=== PATIENT | female | born 1975 | race Caucasian/White ===

== ENCOUNTER 2016-06-20 14:37 | Emergency (ER) | payer MEDICAID ==
[~2016-06-20] VITALS: Ht 172.7 cm; Wt 70.5 kg
[~2016-06-20 14:37] MED LIST: ADDE30TA PO; SERO50TA PO
[2016-06-20 14:44] VITALS: BP 134/91; PULSE 123; RESP 16; TEMP 97.6; O2SAT 97
[2016-06-20 14:50] VITALS: BP 134/91; PULSE 108; RESP 16; O2SAT 97
[2016-06-20] MEDS ORDERED: QUET1TAB7 PO (14:56)
[2016-06-20] MEDS ORDERED: SODIUM CHLOR 0.9% 1000 ML INJ 1,000 ML IV ONE (15:00)
[2016-06-20] MEDS ORDERED: LORazepam 2 MG/ML VIAL IV PUSH ONE (15:00)
[2016-06-20] MEDS ORDERED: SODIUM CHLORIDE 0.9% FLUSH 5 ML FLUSH IVF PRN (15:00)
[2016-06-20 15:01] VITALS: BP 134/91; PULSE 132; RESP 16; O2SAT 100
[2016-06-20] MEDS ORDERED: ADDE30TA PO (15:03)
--- NOTE | 2016-06-20 15:08 | PD ---
HPI Chief Complaint: Cardiac Complaint Time Seen by Provider: 14:58 Travel History International Travel<30 days: No Contact w/Intl Traveler<30days: No Traveled to known affect area: No History of Present Illness HPI 40-year-old female presents to the ER today for sudden onset of palpitations, anxiety which started today. She denies any chest pains, shortness of breath, or any other symptoms. She does not know an obvious trigger. She denies any homicidal or suicidal ideation. She denies any substance use. She states that she had a few cups of coffee and soda today. Modifying Factors: None Associated Signs & Symptoms: Palpitations Risk Factors: None PFSH Past Medical History Hx Anticoagulant Therapy: No ADD: Yes ADHD: Yes Anxiety: Yes Heart Rhythm Problems: Yes (SVT) Cardiac Catheterization: No Cardiovascular Problems: Yes (TREADMILL STRESSTEST: NEGATIVE 2015) High Cholesterol: No Chemotherapy: No Chest Pain: Yes (WITH "ANXIETY ATTACKS") Congestive Heart Failure: No Cerebrovascular Accident: No Diabetes: No Diminished Hearing: No Respiratory: No Immunizations Current: Yes ?: Not Menopausal: Yes : 3 Para: 3 Miscarriage: 0 : 0 Past Surgical History Abdominal Surgery: Yes (2000,"part of large intestine removed at same time as hysterectomy", ) Cholecystectomy: Yes Coronary Artery Bypass Graft: No Hysterectomy: Yes Joint Replacement: Yes (BILATERAL ELBOW SURGERY) Other Surgery: Yes (gastric bypass) Social History Alcohol Use: No Tobacco Use: No Substance Use: No Allergies-Medications (Allergen,Severity, Reaction): Coded Allergies: Dilaudid (Unverified Allergy, Severe, Itching, 06/20/16) Morphine (Unverified Allergy, Severe, CLOSTROPHOBIA, 06/20/16) Codeine (Verified Allergy, Mild, 06/20/16) Darvocet-N 100 (Verified Allergy, Mild, 06/20/16) Percocet (Verified Allergy, Mild, 06/20/16) Latex (Verified Adverse Reaction, Severe, "blisters", 06/20/16) Reported Meds & Prescriptions Reported Meds & Active Scripts Active Reported Adderall (Amphetamine-Dextroamphetamine) 30 Mg Tab 30 Mg PO DAILY Avoid late evening doses. Space doses at least 4 to 6 hours if more than once/day dosing. Quetiapine (Quetiapine Fumarate) 25 Mg Tab 25 Mg PO BID Review of Systems Except as stated in HPI: all other systems reviewed are Neg Physical Exam Narrative GENERAL: Well-nourished, well-developed anxious appearing white female patient in mild distress. SKIN: Warm and dry. HEAD: Normocephalic. EYES: No scleral icterus. No injection or drainage. NECK: Supple, trachea midline. CARDIOVASCULAR: Fast and regular rhythm without murmurs, gallops, or rubs. RESPIRATORY: Breath sounds equal bilaterally. No accessory muscle use. GASTROINTESTINAL: Abdomen soft, non-tender, nondistended. MUSCULOSKELETAL: No cyanosis, or edema. BACK: Nontender without obvious deformity. No CVA tenderness. Data Data Last Documented VS Vital Signs Date Time Temp Pulse Resp B/P Pulse Ox O2 Delivery O2 Flow Rate FiO2 06/20/16 16:14 102 16 151/90 100 Room Air 06/20/16 14:44 97.6 Orders Electrocardiogram (06/20/16 14:58) Basic Metabolic Panel (Bmp) (06/20/16 14:58) Complete Blood Count With Diff (06/20/16 14:58) D-Dimer (06/20/16 14:58) Magnesium (Mg) (06/20/16 14:58) Chest, Single Ap (06/20/16 14:58) Ecg Monitoring (06/20/16 14:58) Bilateral Bp Monitoring (06/20/16 14:58) Iv Access Insert/Monitor (06/20/16 14:58) Oximetry (06/20/16 14:58) Oxygen Administration (06/20/16 14:58) Sodium Chloride 0.9% Flush (Ns Flush) (06/20/16 15:00) Ed Urine Pregnancytest Poc (06/20/16 14:58) Sodium Chlor 0.9% 1000 Ml Inj (Ns 1000 M (06/20/16 15:00) Lorazepam Inj (Ativan Inj) (06/20/16 15:00) Labs Laboratory Tests Test 06/20/16 14:56 White Blood Count 4.9 TH/MM3 Red Blood Count 4.93 MIL/MM3 Hemoglobin 14.1 GM/DL Hematocrit 41.1 % Mean Corpuscular Volume 83.3 FL Mean Corpuscular Hemoglobin 28.5 PG Mean Corpuscular Hemoglobin 34.2 % Concent Red Cell Distribution Width 13.1 % Platelet Count 194 TH/MM3 Mean Platelet Volume 9.1 FL Neutrophils (%) (Auto) 56.0 % Lymphocytes (%) (Auto) 32.0 % Monocytes (%) (Auto) 10.0 % Eosinophils (%) (Auto) 1.1 % Basophils (%) (Auto) 0.9 % Neutrophils # (Auto) 2.7 TH/MM3 Lymphocytes # (Auto) 1.6 TH/MM3 Monocytes # (Auto) 0.5 TH/MM3 Eosinophils # (Auto) 0.1 TH/MM3 Basophils # (Auto) 0.0 TH/MM3 CBC Comment DIFF FINAL Differential Comment D-Dimer Quantitative (PE/DVT) LESS THAN 0.19 MG/L FEU Sodium Level 142 MEQ/L Potassium Level 3.6 MEQ/L Chloride Level 108 MEQ/L Carbon Dioxide Level 27.4 MEQ/L Anion Gap 7 MEQ/L Blood Urea Nitrogen 9 MG/DL Creatinine 0.89 MG/DL Estimat Glomerular Filtration 71 ML/MIN Rate Random Glucose 96 MG/DL Calcium Level 9.1 MG/DL Magnesium Level 2.0 MG/DL [facility] Medical Decision Making Medical Screen Exam Complete: Yes Emergency Medical Condition: Yes Medical Record Reviewed: Yes Interpretation(s) EKG shows sinus tachycardia at a rate of 120 bpm. No signs of acute ST-T changes. Laboratory Tests Test 06/20/16 14:56 Monocytes (%) (Auto) 10.0 % (0.0-8.0) Chloride Level 108 MEQ/L (98-107) Estimat Glomerular Filtration 71 ML/MIN (>89) Rate Differential Diagnosis Palpitationsdysrhythmias versus metabolic issues versus dehydration versus anxiety attack Narrative Course D-dimer is negative. Patient has sinus tachycardia, no signs of delta waves or other dysrhythmias. Vital signs are otherwise unremarkable. Her d-dimer is negative. She was given Ativan in the ER with improvement in heart rate on reevaluation at 4:30 PM. At this point, my plan would be to release her with follow-up to primary care physician. Avoid caffeinated beverages. Return for any worsening in symptoms as needed. The plan has been discussed with her and family who are now bedside and they are agreeable. Diagnosis Primary Impression: Sinus tachycardia Disposition: 01 DISCHARGE HOME Condition: Stable Arie Ortega MD Jun 20, 2016 15:08
[2016-06-20 15:23] LABS: AUTOMATED NEUTROPHIL # 2.7 TH/MM3 (1.8-7.7); BASOPHIL % 0.9 % (0.0-2.0); EOSINOPHIL # 0.1 TH/MM3 (0-0.4); EOSINOPHIL % 1.1 % (0.0-4.0); HEMATOCRIT 41.1 % (35.0-46.0); HEMO FLAGS DIFF FINAL; LYMPHOCYTE # 1.6 TH/MM3 (1.0-4.8); MEAN CELL VOLUME 83.3 FL (80.0-100.0); MEAN CORPUSCULAR HEMOGLOBIN 28.5 PG (27.0-34.0); MEAN CORPUSCULAR HGB CONC 34.2 % (32.0-36.0); PLATELET COUNT 194 TH/MM3 (150-450); RED BLOOD COUNT 4.93 MIL/MM3 (4.00-5.30); RED CELL DISTRIBUTION WIDTH 13.1 % (11.6-17.2); WHITE BLOOD COUNT 4.9 TH/MM3 (4.0-11.0)
[2016-06-20 15:32] VITALS: BP 148/98; PULSE 122; RESP 16; O2SAT 100
[2016-06-20 16:01] LABS: BICARBONATE 27.4 MEQ/L (21.0-32.0); POTASSIUM 3.6 MEQ/L (3.5-5.1)
[2016-06-20 16:14] VITALS: BP 151/90; PULSE 102; RESP 16; O2SAT 100
--- NOTE | 2016-06-20 16:20 | RADRPT ---
EXAM DATE/TIME: 06/20/2016 16:00 [facility] COMPARISON: CHEST SINGLE AP, April 14, 2015, 11:08. INDICATIONS : Irregular heart rate, chest discomfort starting today MEDICAL HISTORY : None. SURGICAL HISTORY : None. ENCOUNTER: Initial ACUITY: 1 day PAIN SCORE: 0/10 LOCATION: Bilateral chest FINDINGS: A single view of the chest demonstrates the lungs to be symmetrically aerated without evidence of mas s, infiltrate or effusion. The cardiomediastinal contours are unremarkable. Osseous structures are intact. CONCLUSION: Normal examination. No significant change has occurred. Rj Delgado MD on June 20, 2016 at 16:18 Board Certified Radiologist. This report was verified electronically.
--- NOTE | 2016-06-21 12:49 | EKG ---
Date Performed: 06/20/2016 Time Performed: 14:49:50 PTAGE: 40 years EKG: SINUS TACHYCARDIA NONSPECIFIC ST & T-WAVE ABNORMALITY Compared to previous tracing non spec ific st changes ar enow present and the rate is faster ABNORMAL RHYTHM ECG PREVIOUS TRACING : 04/14/2015 13.59 DOCTOR: Kain Jang Interpretating Date/Time 06/21/2016 12:48:30
[2016-07-17] MEDS ORDERED: ADDE30TA PO ×3 (13:10→13:41)
[2016-07-17] MEDS ORDERED: QUET1TAB7 PO (13:41)
[2016-10-13] MEDS ORDERED: SERO25TA PO ×2 (12:29→12:33)
[2016-10-13] MEDS ORDERED: ADDE30TA PO ×2 (12:29→15:04)
[2016-11-05] MEDS ORDERED: ADDE30TA PO ×2 (08:48→14:24)
[2016-11-05] MEDS ORDERED: ZOLO100T PO ×2 (14:19→14:24)
== END 2016-06-20 16:47 | disposition home or self-care (01) ==
LOC: NEPC 14:37
DX: R00.0 Tachycardia, unspecified (principal); F41.9 Anxiety disorder, unspecified; R94.31 Abnormal electrocardiogram [ECG] [EKG]; Z86.59 Personal history of other mental and behavioral disorders; Z86.79 Personal history of other diseases of the circulatory system
CPT/HCPCS: 71010; 80048; 83735; 85025; 85379; 93005; 96361; 96374; 99285; J2060; J7030

== ENCOUNTER 2016-08-04 09:13 | Observation (INO) | payer MEDICAID ==
[2016-08-04] VITALS (7 sets, daily range): BP systolic 110–136; BP diastolic 63–90; PULSE 62–134; RESP 16–22; TEMP 97.7–98.3; O2SAT 96–99
[~2016-08-04] VITALS: Ht 175.3 cm; Wt 75.0 kg
[~2016-08-04 09:13] MED LIST changes: +QUET1TAB7 PO; -SERO50TA PO
[2016-08-04] MEDS ORDERED: NITR0.4S SL (09:31)
[2016-08-04] MEDS ORDERED: METO50TA PO (09:31)
[2016-08-04] MEDS ORDERED: QUET1TAB7 PO (09:32)
[2016-08-04] MEDS ORDERED: ASPI325T PO (09:32)
[2016-08-04] MEDS ORDERED: SODIUM CHLORIDE 0.9% FLUSH 5 ML FLUSH IVF PRN ×2 (09:45→14:15)
[2016-08-04] MEDS: METOPROLOL TARTRATE 5 MG/5 ML VIAL IVS SCH ×3 (09:50→09:55)
[2016-08-04 10:03] LABS: AUTOMATED NEUTROPHIL # 2.4 TH/MM3 (1.8-7.7); BASOPHIL % 0.7 % (0.0-2.0); EOSINOPHIL # 0.1 TH/MM3 (0-0.4); HEMO FLAGS DIFF FINAL; LYMPHOCYTE # 1.7 TH/MM3 (1.0-4.8); MEAN CELL VOLUME 83.8 FL (80.0-100.0); MEAN CORPUSCULAR HEMOGLOBIN 28.4 PG (27.0-34.0); NEUT % 50.3 % (16.0-70.0); PLATELET COUNT 184 TH/MM3 (150-450); RED BLOOD COUNT 4.42 MIL/MM3 (4.00-5.30); RED CELL DISTRIBUTION WIDTH 13.1 % (11.6-17.2); WHITE BLOOD COUNT 4.8 TH/MM3 (4.0-11.0)
[2016-08-04] MEDS: NITROGLYCERIN 0.4 MG SL 25 TABS/BTL SL SCH ×3 (10:05→10:10)
--- NOTE | 2016-08-04 10:09 | PD ---
HPI Chief Complaint: Chest Pain Time Seen by Provider: 09:35 Travel History International Travel<30 days: No Contact w/Intl Traveler<30days: No Traveled to known affect area: No History of Present Illness HPI Patient 40-year-old female presents emergency Department with chest pain and having the middle of her chest without radiation. She does endorse mild shortness of breath with these symptoms. Patient states is intermittently happen to her over the past few months. Patient states the pain started approximately 8:30 today she took 2 nitroglycerin prior to arrival which only had mild effect on her pain. Patient is followed by an outside wood tile installation helper and had a stress test in the middle of June which was positive for reversible defect. Patient according to the documentation from her wood tile installation helper she has brought with her was referred to credit collections analyst however nobody appears to take her insurance. Patient did take 324 aspirin this morning. She states she's also been taking her other medicines Adderall as well as metoprolol. PFSH Past Medical History Hx Anticoagulant Therapy: No ADD: Yes ADHD: Yes Anxiety: Yes Heart Rhythm Problems: Yes (SVT) Cardiac Catheterization: No Cardiovascular Problems: Yes High Cholesterol: No Chemotherapy: No Chest Pain: Yes (WITH "ANXIETY ATTACKS") Congestive Heart Failure: No Cerebrovascular Accident: No Diabetes: No Diminished Hearing: No Respiratory: No Immunizations Current: Yes ?: Not Menopausal: Yes : 3 Para: 3 Miscarriage: 0 : 0 Past Surgical History Abdominal Surgery: Yes (2000,"part of large intestine removed at same time as hysterectomy", ) Cholecystectomy: Yes Coronary Artery Bypass Graft: No Hysterectomy: Yes Joint Replacement: Yes (BILATERAL ELBOW SURGERY) Other Surgery: Yes (gastric bypass) Social History Alcohol Use: No Tobacco Use: No Substance Use: No Allergies-Medications (Allergen,Severity, Reaction): Coded Allergies: Dilaudid (Unverified Allergy, Severe, Itching, 07/17/16) Morphine (Unverified Allergy, Severe, CLOSTROPHOBIA, 07/17/16) Codeine (Verified Allergy, Mild, 07/17/16) Darvocet-N 100 (Verified Allergy, Mild, 07/17/16) Percocet (Verified Allergy, Mild, 07/17/16) Latex (Verified Adverse Reaction, Severe, "blisters", 07/17/16) Reported Meds & Prescriptions Reported Meds & Active Scripts Active Adderall (Amphetamine-Dextroamphetamine) 30 Mg Tab 30 Mg PO BID Avoid late evening doses. Space doses at least 4 to 6 hours if more than once/day dosing. Adderall (Amphetamine-Dextroamphetamine) 30 Mg Tab 30 Mg PO BID Avoid late evening doses. Space doses at least 4 to 6 hours if more than once/day dosing. Adderall (Amphetamine-Dextroamphetamine) 30 Mg Tab 30 Mg PO BID Avoid late evening doses. Space doses at least 4 to 6 hours if more than once/day dosing. Reported Quetiapine (Quetiapine Fumarate) 25 Mg Tab 25 Mg PO DAILY Aspirin 325 Mg Tab 325 Mg PO DAILY Nitrostat SL (Nitroglycerin) 0.4 Mg Subl 0.4 Mg SL DIRECTED PRN 1 tablet under the tongue as needed for chest pain. Repeat every 5 minutes for a total of 3 DOSES or call 911 if NO relief. Metoprolol Tartrate 50 Mg Tab 50 Mg PO BID Review of Systems Except as stated in HPI: all other systems reviewed are Neg Physical Exam Narrative GENERAL: Well-developed well-nourished no apparent distress SKIN: Warm and dry. HEAD: Atraumatic. Normocephalic. EYES: Pupils equal and round. No scleral icterus. No injection or drainage. ENT: No nasal bleeding or discharge. Mucous membranes pink and moist. NECK: Trachea midline. No JVD. CARDIOVASCULAR: Regular rate and rhythm. No murmur appreciated. 2+ bilateral equal pulses in all 4 extremity RESPIRATORY: No accessory muscle use. Clear to auscultation. Breath sounds equal bilaterally. GASTROINTESTINAL: Abdomen soft, non-tender, nondistended. Hepatic and splenic margins not palpable. MUSCULOSKELETAL: No obvious deformities. No clubbing. No cyanosis. No edema. NEUROLOGICAL: Awake and alert. No obvious cranial nerve deficits. Motor grossly within normal limits. Normal speech. PSYCHIATRIC: Appropriate mood and affect; insight and judgment normal. Data Data Last Documented VS Vital Signs Date Time Temp Pulse Resp B/P Pulse Ox O2 Delivery O2 Flow Rate FiO2 08/04/16 10:45 62 20 110/63 98 Nasal Cannula 2 08/04/16 09:21 98.3 Orders Electrocardiogram (08/04/16 ) Ckmb (Isoenzyme) Profile (08/04/16 09:43) Complete Blood Count With Diff (08/04/16 09:43) Comprehensive Metabolic Panel (08/04/16 09:43) Magnesium (Mg) (08/04/16 09:43) Prothrombin Time / Inr (Pt) (08/04/16 09:43) Act Partial Throm Time (Ptt) (08/04/16 09:43) Troponin I (08/04/16 09:43) Lipase (08/04/16 09:43) Chest, Single Ap (08/04/16 09:43) Ecg Monitoring (08/04/16 09:43) Bilateral Bp Monitoring (08/04/16 09:43) Iv Access Insert/Monitor (08/04/16 09:43) Oximetry (08/04/16 09:43) Oxygen Administration (08/04/16 09:43) Sodium Chloride 0.9% Flush (Ns Flush) (08/04/16 09:45) Metoprolol Tartrate Inj (Lopressor Inj) (08/04/16 09:45) Nitroglycerin Sl (Nitrostat Sl) (08/04/16 10:00) D-Dimer (08/04/16 09:58) Consult Cardiology (08/04/16 ) Admit Order (Ed Use Only) (08/04/16 ) Labs Laboratory Tests Test 08/04/16 09:46 White Blood Count 4.8 TH/MM3 Red Blood Count 4.42 MIL/MM3 Hemoglobin 12.6 GM/DL Hematocrit 37.0 % Mean Corpuscular Volume 83.8 FL Mean Corpuscular Hemoglobin 28.4 PG Mean Corpuscular Hemoglobin 34.0 % Concent Red Cell Distribution Width 13.1 % Platelet Count 184 TH/MM3 Mean Platelet Volume 8.7 FL Neutrophils (%) (Auto) 50.3 % Lymphocytes (%) (Auto) 36.0 % Monocytes (%) (Auto) 10.0 % Eosinophils (%) (Auto) 3.0 % Basophils (%) (Auto) 0.7 % Neutrophils # (Auto) 2.4 TH/MM3 Lymphocytes # (Auto) 1.7 TH/MM3 Monocytes # (Auto) 0.5 TH/MM3 Eosinophils # (Auto) 0.1 TH/MM3 Basophils # (Auto) 0.0 TH/MM3 CBC Comment DIFF FINAL Differential Comment Prothrombin Time 10.2 SEC Prothromb Time International 0.9 RATIO Ratio Activated Partial 25.6 SEC Thromboplast Time D-Dimer Quantitative (PE/DVT) 0.34 MG/L FEU Sodium Level 142 MEQ/L Potassium Level 3.8 MEQ/L Chloride Level 107 MEQ/L Carbon Dioxide Level 27.7 MEQ/L Anion Gap 7 MEQ/L Blood Urea Nitrogen 17 MG/DL Creatinine 0.88 MG/DL Estimat Glomerular Filtration 72 ML/MIN Rate Random Glucose 118 MG/DL Calcium Level 8.3 MG/DL Magnesium Level 1.9 MG/DL Total Bilirubin 0.4 MG/DL Aspartate Amino Transf 21 U/L (AST/SGOT) Alanine Aminotransferase 22 U/L (ALT/SGPT) Alkaline Phosphatase 127 U/L Total Creatine Kinase 54 U/L Troponin I LESS THAN 0.02 NG/ML Total Protein 6.5 GM/DL Albumin 3.2 GM/DL Lipase 286 U/L MDM Medical Decision Making Medical Screen Exam Complete: Yes Emergency Medical Condition: Yes Interpretation(s) EKG shows sinus rhythm with a normal axis and normal R-wave progression. Q waves in II, III, and F aVF could represent inferior infarct, no concerning ST T changes. Probable left atrial enlargement, borderline EKG. Differential Diagnosis ACS, [place], PE less likely, pneumonia, pleuritic chest pain, anxiety. Narrative Course Patient roomed in the emergency department, tachycardic out in triage was given a total of 5,000,000 g IV, nitroglycerin 1 sublingual. Had some improvement in her pain. D-dimer was negative, troponin negative, EKG is nonischemic. Patient was discussed with Dr. Riky Ugalde who agrees with admission for his consultation and consideration of cardiac catheterization after his consultation. This was discussed with the patient who is agreeable. She remains hemodynamically stable in the emergency department. Diagnosis Primary Impression: Chest pain Qualified Code: R07.9 - Chest pain, unspecified type Additional Impression: Abnormal stress test Admitting Information Admitting Physician Requests: Observation Condition: Stable Lucas Kang MD Aug 04, 2016 10:09
[2016-08-04 10:12] LABS: APTT (PATIENT) 25.6 SEC (24.3-30.1); INTERNATIONAL NORMALIZED RATIO 0.9 RATIO; PROTHROMBIN TIME - PATIENT 10.2 SEC (9.8-11.6)
[2016-08-04 10:25] LABS: ANION GAP 7 MEQ/L (5-15); AST (GOT) 21 U/L (15-37); BICARBONATE 27.7 MEQ/L (21.0-32.0); BLOOD UREA NITROGEN 17 MG/DL (7-18); CHLORIDE 107 MEQ/L (98-107); GLOMERULAR FILTRATION RATE 72 ML/MIN (>89); MAGNESIUM 1.9 MG/DL (1.5-2.5); POTASSIUM 3.8 MEQ/L (3.5-5.1); SODIUM (NA) 142 MEQ/L (136-145)
[2016-08-04 10:30] LABS: ALKALINE PHOSPHATASE 127 U/L (45-117); ALT (GPT) 22 U/L (10-53); TOTAL BILIRUBIN ADULT 0.4 MG/DL (0.2-1.0)
--- NOTE | 2016-08-04 10:32 | RADRPT ---
EXAM DATE/TIME: 08/04/2016 10:14 [facility] COMPARISON: CHEST SINGLE AP, June 20, 2016, 16:00. INDICATIONS : Patient has had chest pain since this morning. MEDICAL HISTORY : None. SURGICAL HISTORY : Hysterectomy. ENCOUNTER: Initial ACUITY: 1 day PAIN SCORE: 8/10 LOCATION: chest FINDINGS: A single view of the chest demonstrates the lungs to be symmetrically aerated without evidence of mas s, infiltrate or effusion. The cardiomediastinal contours are unremarkable. Osseous structures are intact. CONCLUSION: Normal examination. Zach Adrian MD on August 04, 2016 at 10:28 Board Certified Radiologist. This report was verified electronically.
[2016-08-04 10:36] LABS: CREATINE KINASE 54 U/L (26-192)
--- NOTE | 2016-08-04 11:07 | HHI.HP ---
[facility] Service Family Medicine Primary Care Physician Kaushal Sanderson Admission Diagnosis Diagnoses: International Travel<30 Days: No Contact w/Intl Traveler<30days: No Known Affected Area: No History of Present Illness 40-year-old female, with past medical history of gastric bypass, severe anxiety, panic disorder, and spontaneous ventricular tachycardia, presents with chest pain for the past 3 years, off and on. Recently, she got up this morning at 0815 and took 325 mg Aspirin. The pain was described as a shooting pain in her back, neck and into the chest, after getting into the shower. She started sweating and needed to sit in front of a fan. Took at nitroglycerin sublingual tablet at 0850, this "didn't help any". He further characterizes her pain/chest discomfort as: Onset: Sudden onset Location: Middle of chest, radiating across entire chest. Radiated into neck. Duration: Constant C: Tightness, pressure. 10/10 at that time. Currently at 8/10. [place] like "I was trying to suck through a straw." A: Any movement makes her pain worse. R: Nothing makes the pain better. Drinking [place] lessens her pain. Time: Symptoms: [place] nauseous at time of event, and since. He denies any acid reflux symptoms, and did not eat prior to the event. The chest pain is not related to exertion. She did not feel any palpitations. Nitroglycerine does not help with the chest pain. The chest discomfort, shortness of breath, diaphoresis, and worry were "different than her normal panic attacks". Denies asthma. Denies reflux symptoms. Pressure and chest discomfort started 3 years ago. Everyday heart racing, feeling short of breath, for past 3 years. Adderall only twice a month. (Zia Suero MD R2) Review of Systems Constitutional: COMPLAINS OF: Fatigue, DENIES: Fever Eyes: DENIES: Diplopia Cardiovascular: COMPLAINS OF: Chest pain, Palpitations, PND, Lower Extremity Edema, DENIES: Syncope Gastrointestinal: COMPLAINS OF: Nausea, DENIES: Bloody stools, Constipation, Diarrhea, Vomiting Musculoskeletal: COMPLAINS OF: Back pain, Neck pain, DENIES: Stiffness Neurologic: DENIES: Headache (Zia Suero MD R2) Past Family Social History Past Medical History Past Medical History ADD: Yes ADHD: Yes Anxiety: Yes Heart Rhythm Problems: Yes (SVT) Cardiac Catheterization: No Cardiovascular Problems: Yes - nuclear stress test Feb large, reversible anterior wall defect. High Cholesterol: No Chest Pain: Yes x 3 years Cerebrovascular Accident: No Diabetes: No Diminished Hearing: No Respiratory: No Past Surgical History Abdominal Surgery: Yes 2000 full hysterectomy", Cholecystectomy: Yes 1998 Coronary Artery Bypass Graft: No Hysterectomy: Yes Joint Replacement: Yes (BILATERAL ELBOW SURGERY) Other Surgery: Yes - gastric bypass 2013, lost 160 lbs in 1 year. Breast Augmentation November 2014, "tummy tuck" Social History Alcohol Use: No Tobacco Use: No Substance Use: No Lives in [facility]. Lives with . (Zia Suero MD R2) Allergies: Coded Allergies: Dilaudid (Unverified Allergy, Severe, Itching, 07/17/16) Morphine (Unverified Allergy, Severe, CLOSTROPHOBIA, 07/17/16) Codeine (Verified Allergy, Mild, 07/17/16) Darvocet-N 100 (Verified Allergy, Mild, 07/17/16) Percocet (Verified Allergy, Mild, 07/17/16) Latex (Verified Adverse Reaction, Severe, "blisters", 07/17/16) Physical Exam Vital Signs Vital Signs Date Time Temp Pulse Resp B/P Pulse Ox O2 Delivery O2 Flow Rate FiO2 08/04/16 10:45 62 20 110/63 98 Nasal Cannula 2 08/04/16 10:18 76 16 110/67 96 Nasal Cannula 2 08/04/16 10:09 70 20 120/73 97 Nasal Cannula 2 08/04/16 09:58 99 Nasal Cannula 2 08/04/16 09:56 67 20 117/77 99 Nasal Cannula 2 08/04/16 09:21 98.3 99 22 136/90 97 08/04/16 09:20 97.7 134 18 132/83 97 Physical Exam Vital Signs Date Time Temp Pulse Resp B/P Pulse Ox O2 Delivery O2 Flow Rate FiO2 08/04/16 13:08 98 Nasal Cannula 2.00 08/04/16 10:45 62 20 110/63 08/04/16 09:21 98.3 GENERAL: This is a well-nourished, well-developed patient, in no apparent distress. Slightly diaphoretic. SKIN: Multiple tattoos. HEAD: Atraumatic. Normocephalic. No temporal or scalp tenderness. EYES: Pupils equal round and reactive. Extraocular motions intact. No scleral icterus. No injection or drainage. ENT: Nose without bleeding, purulent drainage or septal hematoma. Upper dentures in place. Throat without erythema, moist mucous membranes. NECK: Trachea midline. No JVD or lymphadenopathy. CARDIOVASCULAR: Regular rate and rhythm without murmurs, gallops, or rubs. Tenderness to palpation over the left sternal border, and as well with movement of the left arm when adducting it past the midline. RESPIRATORY: Clear to auscultation. Breath sounds equal bilaterally. No wheezes , rales, or rhonchi. GASTROINTESTINAL: Abdomen soft, non-tender, nondistended. No hepato-splenomegaly , or palpable masses. No guarding. MUSCULOSKELETAL: Extremities without clubbing, cyanosis, or edema. No joint tenderness, effusion, or edema noted. No calf tenderness. NEUROLOGICAL: Awake and alert. Cranial nerves II through XII intact. Motor and sensory grossly within normal limits. Five out of 5 muscle strength in all muscle groups. Normal speech. Laboratory Laboratory Tests Test 08/04/16 09:46 White Blood Count 4.8 Red Blood Count 4.42 Hemoglobin 12.6 Hematocrit 37.0 Mean Corpuscular Volume 83.8 Mean Corpuscular Hemoglobin 28.4 Mean Corpuscular Hemoglobin 34.0 Concent Red Cell Distribution Width 13.1 Platelet Count 184 Mean Platelet Volume 8.7 Neutrophils (%) (Auto) 50.3 Lymphocytes (%) (Auto) 36.0 Monocytes (%) (Auto) 10.0 Eosinophils (%) (Auto) 3.0 Basophils (%) (Auto) 0.7 Neutrophils # (Auto) 2.4 Lymphocytes # (Auto) 1.7 Monocytes # (Auto) 0.5 Eosinophils # (Auto) 0.1 Basophils # (Auto) 0.0 CBC Comment DIFF FINAL Differential Comment Prothrombin Time 10.2 Prothromb Time International 0.9 Ratio Activated Partial 25.6 Thromboplast Time D-Dimer Quantitative (PE/DVT) 0.34 Sodium Level 142 Potassium Level 3.8 Chloride Level 107 Carbon Dioxide Level 27.7 Anion Gap 7 Blood Urea Nitrogen 17 Creatinine 0.88 Estimat Glomerular Filtration 72 Rate Random Glucose 118 Calcium Level 8.3 Magnesium Level 1.9 Total Bilirubin 0.4 Aspartate Amino Transf 21 (AST/SGOT) Alanine Aminotransferase 22 (ALT/SGPT) Alkaline Phosphatase 127 Total Creatine Kinase 54 Troponin I LESS THAN 0.02 Total Protein 6.5 Albumin 3.2 Lipase 286 (Zia Suero MD R2) Result Diagram: 08/04/16 0946 08/04/16 0946 Imaging EKG: Heart rate 88, sinus rhythm, no ST or T-wave changes. Adequate R-wave progression in anterior leads. (Zia Suero MD R2) Septic Shock Reassessment Heart: Regular rate and rhythm Lungs: Clear Skin: Warm (Zia Suero MD R2) Assessment and Plan Assessment and Plan 40-year-old female, presenting with chest pain x 1 hour in duration that was sudden onset, that radiates to her back and up into her neck. Previous nuclear stress test revealed an anterior wall perfusion defect, that was reversible. She did not have an elevation in her troponin or in her baseline EKG. She was taken to the Neurosurgeon per the medical billing service, there were no acute blockages. Code Status Full Code. (Zia Suero MD R2) Problem List: (1) Sinus tachycardia Status: Acute Plan: Tachycardia on admission to 115 bpm, sinus in origin. Likely related to underlying anxiety disorder. (2) Atypical chest pain Status: Acute Plan: Chest pain not classic for angina. Not related to exertion, not relieved with nitroglycerin, and reproducible on exam. Differential includes musculoskeletal, costochondritis, as well as panic disorder. Troponins were less than 0.02. EKG showed sinus rhythm with no ST change, T- wave flattening or inversion, or Q waves. Cardiac catheter was performed, please see cardiology's note. (3) Anxiety Status: Acute Plan: Command following up with primary care physician. Would consider adding BuSpar, versus clonazepam twice a day for underlying anxiety. (4) Abnormal stress test Status: Acute Plan: Previous abnormal nuclear stress test with Dr. Chapin. Which revealed a "large anterior reversible defect." Her echo showed an EF of 45% and her SPECT scan revealed an EF of 40%. There was trace mitral regurgitation and trace tricuspid regurgitation. (5) Depressive disorder Status: Acute Plan: Recommend follow-up as an outpatient. Discussed with Dr. Thomas and Dr. Ugalde. D/c home today 08/05/2016. (Zia Suero MD R2) Zia Suero MD R2 Aug 04, 2016 11:07 Abbi Thomas MD Aug 04, 2016 21:53
[2016-08-04] MEDS ORDERED: LORazepam 2 MG/ML VIAL IVS PRN (11:45)
[2016-08-04] MEDS ORDERED: NITROGLYCERIN 2% OINT 1 GM PACKET TOPICAL PRN (11:45)
[2016-08-04] MEDS ORDERED: ACETAMINOPHEN 500 MG CPLT PO PRN (12:00)
[2016-08-04] MEDS ORDERED: ONDANSETRON HCL 4 MG/2 ML VIAL IV PRN (12:00)
[2016-08-04] MEDS ORDERED: TEMAZEPAM 15 MG CAP PO PRN (12:00)
[2016-08-04] MEDS ORDERED: ALPRAZolam 0.25 MG TAB PO PRN (12:00)
[2016-08-04] MEDS ORDERED: PANTOPRAZOLE SOD 40 MG DELAYED RELEASE TAB PO SCH (13:00)
[2016-08-04] MEDS ORDERED: ENOXAPARIN SODIUM 40 MG/0.4 ML SYRINGE SQ SCH (13:00)
[2016-08-04] MEDS ORDERED: HEPARIN-NS/PF INJ 500 ML ONE (13:15)
[2016-08-04] MEDS ORDERED: MIDAZOLAM HCL 2 MG/2 ML VIAL ONE (13:16)
[2016-08-04] MEDS ORDERED: VERAPAMIL HCL 5 MG/2 ML VIAL ONE (13:16)
[2016-08-04] MEDS ORDERED: NITROGLYCERIN INJ 5 ML ONE (13:16)
[2016-08-04] MEDS ORDERED: HEPARIN SODIUM - IV 10,000 UNITS/10 ML VIAL ONE (13:16)
[2016-08-04] MEDS ORDERED: IOHEXOL 350 MG/ML 100 ML BTL (for Cath Lab) OTHER ONE (14:00)
[2016-08-04] MEDS ORDERED: MISC INFORMATION XX ONE (14:15)
--- NOTE | 2016-08-04 14:16 | MB ---
cc: ELLIOTT QUARLES,ROSITA GUTIÉRREZ DATE OF CONSULTATION: 08/04/[address] Rosita Sanderson. PRIMARY COMPENSATION SUPERVISOR Dr. Karl Griffiths. REASON FOR CONSULTATION Chest pain with abnormal stress test. HISTORY OF PRESENT ILLNESS Musa Martinez is a pleasant 40-year-old female who presents to [facility] Emergency Room on August 04, 2016 with a complaint of chest pain. She had previously seen Dr. Griffiths in the office and had a stress test in June showing a large anterior reversible defect with some suspicion of artifact. Ejection fraction was noted to be 40% on the stress test. In speaking to her, she states that she woke up this morning and had chest pain. Her chest pain starts in the middle of her back and then comes through the front of her chest which is sharp in nature. It does not radiate anywhere. It lasted all morning until now. She attempted to take two nitroglycerin which did not relieve it. She states that a lot of times she gets the pain when she has palpitations and appears to be in sinus tachycardia. Currently she is resting comfortably without pain. She does admit to panic attacks but feels that these episodes are different then her panic attacks. Chest pain started around [id number] years ago. PAST MEDICAL HISTORY 1. Anxiety. 2. History of SVT of unknown rhythm. 3. ADHD. PAST SURGICAL HISTORY 1. Hysterectomy (2000). 2. Cholecystectomy (1998). 3. Bilateral elbow surgery. 4. Gastric bypass with a Viola-en-Y (2013). 5. Breast augmentation (November 2014). ALLERGIES CODEINE. MEDICATIONS 1. Adderall 30 mg b.i.d. 2. Seroquel 25 mg daily. 3. Metoprolol tartrate 50 mg b.i.d. 4. Nitro sublingual as needed. 5. Aspirin 325 mg daily. SOCIAL HISTORY Denies tobacco, alcohol or drug abuse. FAMILY HISTORY Denies premature coronary artery disease or sudden cardiac within the family. REVIEW OF SYSTEMS 14-systems were reviewed in the history and physical and above pertinent positives and negatives above, otherwise negative. PHYSICAL EXAMINATION VITAL SIGNS: Temperature 98.3, heart rate 62, blood pressure 110/63, respirations 20, pulse ox 98% on 2 liters. GENERAL: The patient appears well, in no acute distress, alert, awake and oriented x3. HEENT: Extraocular muscles intact. Mucous membranes moist. NECK: Supple. No JVD at 45 degrees. No carotid bruits heard bilaterally. Carotid upstroke is brisk in nature. HEART: Heart is regular rate and rhythm. Positive first and second heart sounds with no murmurs, gallops or rubs. PMI is nondisplaced. LUNGS: Clear to auscultation bilaterally. No wheezes, rales or rhonchi. ABDOMEN: Soft, nontender, nondistended. No organomegaly noted. EXTREMITIES: Show no clubbing, cyanosis or edema. Femoral and distal pulses intact bilaterally. NEUROLOGIC: No focal deficits. SKIN: Warm, dry and intact. OSTEOPATHIC: No kyphoscoliosis, lordosis or paraspinal tender points. LABORATORY FINDINGS Hemoglobin 12.6, hematocrit 37.0, platelets 184. Potassium 3.8, BUN 17, creatinine 0.88, troponin 0.02. Electrocardiogram (August 04, 2016 at 0925) sinus rhythm, no acute ST-T wave changes. Pharmacologic nuclear stress test (July 22, 2016) large anterior reversible defect, ejection fraction 40%. IMPRESSION 1. Atypical chest pain for coronary insufficiency. 2. Pharmacologic nuclear stress test (July 22, 2016) showing a large anterior reversible defect. 3. SVT most likely a sinus tachycardia. 4. ADHD. 5. History of gastric bypass with Viola-en-Y. RECOMMENDATIONS 1. Because of Musa's chest pain with her significant abnormal stress test, we will plan on going to the cardiac catheterization lab. 2. She understands risks, benefits and alternatives and consents as such. 3. If cardiac catheterization is negative, she may need further workup with her sinus tachycardia which may be causing the pain versus other GI cause. 4. She does appear to have anxiety which may propagate further chest pain. 5. Lastly, she feels that she has extensive sinus tachycardia and this may be propagated by her Adderall. Thank you for allowing me to see Musa Martinez. If there are any questions, please do not hesitate to call. Elliott Quarles DO VGP/TLL /11:28 AM /12:53 PM
--- NOTE | 2016-08-04 15:25 | HHI.DCPOC ---
Discharge Care Plan Goals to Promote Your Health * To prevent worsening of your condition and complications * To maintain your health at the optimal level Directions to Meet Your Goals Take your medications as prescribed Follow your dietary instruction Follow activity as directed Keep your appointments as scheduled Take your immunizations and boosters as scheduled If your symptoms worsen call your PCP, if no PCP go to Urgent Care Center or Emergency Room Smoking is Dangerous to Your Health. Avoid second hand smoke Call the 24-hour hour crisis hotline for domestic abuse at Zia Suero MD R2 Aug 04, 2016 15:25 Abbi Thomas MD Aug 04, 2016 21:50
--- NOTE | 2016-08-04 15:44 | EKG ---
Date Performed: 08/04/2016 Time Performed: 09:25:20 PTAGE: 40 years EKG: Sinus rhythm POSSIBLE LEFT ATRIAL ENLARGEMENT BORDERLINE ECG Compared to prior tracing the sinus tachycardia and minimal nonspecific ST segment changes have resolved. PREVIOUS TRACING : 06/20/2016 14.49 DOCTOR: Gracie Jeffries Interpretating Date/Time 08/04/2016 15:42:44
[2016-08-04 16:24] LABS: HDL CHOLESTEROL 97.3 MG/DL (40.0-60.0)
--- NOTE | 2016-08-04 19:12 | HHI.FPPN ---
Subjective Subjective Patient seen and examined. Case reviewed and discussed Please refer to resident H&P for further details regarding HPI, ROS, PMH, SurgHc , FH and SocHx In summary, patient is a 40yoF presenting with chest pain. This was not relieved with NG She reportedly follows with Dr. Griffiths and reports a reversible defect on recent stress test. Therefore, cardiology was consulted and took patient to cardiac cath. She is seen with her family at the bedside in the DOCU. She denies any chest pain. [facility] Objective Objective Laboratory Tests - Abnormals Test 08/04/16 09:46 Monocytes (%) (Auto) 10.0 % Estimat Glomerular Filtration 72 ML/MIN Rate Random Glucose 118 MG/DL Calcium Level 8.3 MG/DL Alkaline Phosphatase 127 U/L Troponin I LESS THAN 0.02 NG/ML Albumin 3.2 GM/DL HDL Cholesterol 97.3 MG/DL Vital Signs 08/04/16 08/04/16 08/04/16 08/04/16 09:20 09:21 09:56 09:58 Temp 97.7 98.3 Pulse 134 99 67 Resp 18 22 20 B/P 132/83 136/90 117/77 Pulse Ox 97 97 99 99 O2 Delivery Nasal Cannula Nasal Cannula O2 Flow Rate 2 2 08/04/16 08/04/16 08/04/16 08/04/16 10:09 10:18 10:45 13:08 Pulse 70 76 62 Resp 20 16 20 B/P 120/73 110/67 110/63 Pulse Ox 97 96 98 98 O2 Delivery Nasal Cannula Nasal Cannula Nasal Cannula Nasal Cannula O2 Flow Rate 2 2 2 2.00 Physical exam GENERAL: wdwn female resting in bed, NAD SKIN: Warm and dry. No rashes HEAD: Normocephalic AT. EYES: No scleral icterus. No injection or drainage. ENT: OP clear. MMM. NC in place NECK: Supple, trachea midline. No JVD or lymphadenopathy. CARDIOVASCULAR: Regular rate and rhythm without audible murmurs, gallops, or rubs. RESPIRATORY: Breath sounds equal and clear bilaterally. No accessory muscle use. GASTROINTESTINAL: Abdomen soft, non-tender, nondistended. Normal active BS MUSCULOSKELETAL: No cyanosis, or edema. No calf tenderness. R wrist with compression s/p cardiac cath, no bleeding, hematoma. BACK: Nontender without obvious deformity. No CVA tenderness. NEURO: Awake and alert. Normal speech. CN grossly intact. Assessment Assessment 40yoF admitted with: Chest pain, r/o CAD Tachycardia Anxiety Depression PLAN PLAN Cardiology consulted for cardiac cath Trop, ekg Stop adderall-- patient counseled given tachycardia Discussed D-Dimer neg and if cardiac cath neg, likely anxiety related chest pain Telemetry Recommend outpatient follow-up for management of anxiety/depression Patient seen and examined. Case reviewed and discussed Agree with plan of care as discussed with me and documented in the resident note. Discussed with patient and family at the bedside, all questions answered. Abbi Thomas MD Aug 04, 2016 19:12
[2016-08-04] MEDS ORDERED: SODIUM CHLORIDE 0.9% FLUSH 5 ML FLUSH IVF SCH (21:00)
[2016-08-04] MEDS ORDERED: METOPROLOL TARTRATE 50 MG TAB PO SCH (21:00)
--- NOTE | 2016-08-04 21:56 | MA ---
cc: ELLIOTT QUARLES DONALD J. DATE 08/04/2016 PRIMARY BUSINESS ANALYST CONSULTANT [address]. Karl Griffiths. PROCEDURE Left heart catheterization, LV gram, coronary angiogram, moderate sedation 15 minutes. PREPROCEDURE DIAGNOSIS Chest pain, abnormal stress test. POSTPROCEDURE DIAGNOSIS Minimal coronary artery disease by cardiac catheterization. MEDICATIONS 1. Versed 1 mg. 2. Fentanyl 25 mcg. 3. Heparin 3000 units. CONTRAST 60 mL. FLUOROSCOPY 2.6 minutes. SEDATION Moderate sedation for 15 minutes. ESTIMATED BLOOD LOSS 10 mL. PROCEDURAL SUMMARY Musa Martinez is a pleasant 40-year-old female who was seen by Dr. Crawford in June 2016 and underwent pharmacologic nuclear stress testing which showed a moderate size anterior wall perfusion defect. She started having chest pain and so she came in to the emergency room. Due to her chest pain as well as known perfusion defect on stress testing which was felt to be an intermediate risk stress test, it was felt that she should undergo cardiac catheterization. Risks, benefits and alternatives were explained to her and she consented as such. She was brought to the cardiac catheterization lab and prepped in the usual sterile fashion. Right radial artery was accessed using a modified Seldinger technique and placement of a 5/6 slender sheath. A JR-4 was then advanced over a J-wire to the ascending aortic root and then across the aortic valve. Left ventricular end-diastolic pressure was measured at 14, LV gram shows an ejection fraction of 55%. JR-4 was then pulled back across the aortic valve showing no significant gradient of aortic stenosis. JR-4 was then used for a selective angiography of the right coronary artery which has somewhat of an anterior takeoff and is dominant in nature. There is a normal-appearing vessel with no significant disease. JR-4 was then exchanged for a JL-3.5 and this was used for selective angiography of the left coronary system. Left main is a normal-appearing vessel with no significant disease. It trifurcates into an LAD ramus and left circumflex. LAD has mild luminal irregularities in the mid to distal part. It gives off one major diagonal which has no significant disease. Ramus is a moderate size vessel with no significant disease. Left circumflex in the proximal portion is tortuous and may have a 10-20% lesion. Otherwise no significant disease throughout. JL-4 was then removed over a J-wire. A TR band was placed over the radial sheath to create hemostasis. The patient left the cardiac catheterization lab cardiovascularly stable. IMPRESSION 1. Noncoronary chest pain. 2. Possible chest pain secondary to anxiety. 3. History of SVT and sinus tachycardia. RECOMMENDATIONS 1. Musa Martinez presented originally with an abnormal stress test and chest pain. Her abnormal stress test appears to be a false positive. 2. Musa has no significant coronary artery disease to be causing her chest pain. 3. From a cardiovascular standpoint she is stable for discharge today. 4. She will follow up with Dr. Karl Griffiths for further workup of her chest pain. This may be due to anxiety versus a gastrointestinal cause. Thank you for allowing me to see Musa Martinez. If there are any questions please do not hesitate to call. Elliott Quarles DO VGP/KK /5:11 PM /8:42 PM
[2016-08-05] MEDS ORDERED: ASPIRIN 325 MG TAB PO SCH (09:00)
[2016-10-13] MEDS ORDERED: ADDE30TA PO ×2 (12:29→15:04)
[2016-10-13] MEDS ORDERED: SERO25TA PO ×2 (12:29→12:33)
[2016-11-05] MEDS ORDERED: ADDE30TA PO ×2 (08:48→14:24)
[2016-11-05] MEDS ORDERED: ZOLO100T PO ×2 (14:19→14:24)
== END 2016-08-04 16:30 | disposition home or self-care (01) ==
LOC: NEPC 09:13 → NEDA 11:08
PROVIDERS: ADMIT Family Medicine; ATTEND Family Medicine
DX: I25.10 Atherosclerotic heart disease of native coronary artery without angina pectoris (principal); I47.1 Supraventricular tachycardia; F32.9 Major depressive disorder, single episode, unspecified; F41.0 Panic disorder [episodic paroxysmal anxiety]; F90.9 Attention-deficit hyperactivity disorder, unspecified type; Z96.622 Presence of left artificial elbow joint; Z88.5 Allergy status to narcotic agent; Z91.040 Latex allergy status; Z98.84 Bariatric surgery status; Z79.82 Long term (current) use of aspirin; Z88.8 Allergy status to other drugs, medicaments and biological substances; Z96.621 Presence of right artificial elbow joint
CPT/HCPCS: 71010; 80053; 80061; 82550; 83690; 83735; 83880; 84443; 84484; 85025; 85379; 85610; 85730; 93005; 93458; 96374; 99285; C1769; C1893; G0378; J1644; J2250; J3010; Q9967

== ENCOUNTER 2016-09-08 10:19 | Emergency (ER) | payer MEDICAID ==
[~2016-09-08] VITALS: Ht 172.7 cm; Wt 82.0 kg
[~2016-09-08 10:19] MED LIST changes: -ADDE30TA PO; +ASPI325T PO; +METO50TA PO; +NITR0.4S SL
[2016-09-08 10:29] VITALS: BP 130/91; PULSE 113; RESP 20; TEMP 98.2; O2SAT 98
[2016-09-08] MEDS ORDERED: ZITHTAB PO (11:00)
--- NOTE | 2016-09-08 11:28 | PD ---
HPI Chief Complaint: Cold / Flu Symptoms Time Seen by Provider: 10:49 Travel History International Travel<30 days: No Contact w/Intl Traveler<30days: No Traveled to known affect area: No History of Present Illness HPI The patient was seen and examined in the presence of the nurse. She complains of cough and congestion and runny nose. She is coughing up phlegm that has some blood mixed in with it. Does not sound like john hemoptysis. No presyncopal symptoms or chest pain or shortness of breath. Some severity is mild to moderate. PFSH Past Medical History Hx Anticoagulant Therapy: No ADD: Yes ADHD: Yes Anxiety: Yes Heart Rhythm Problems: Yes (SVT) Cardiac Catheterization: No Cardiovascular Problems: Yes High Cholesterol: No Chemotherapy: No Chest Pain: Yes (WITH "ANXIETY ATTACKS") Congestive Heart Failure: No Cerebrovascular Accident: No Diabetes: No Diminished Hearing: No Respiratory: No Immunizations Current: Yes Influenza Vaccination: No ?: Not Menopausal: Yes : 3 Para: 3 Miscarriage: 0 : 0 Past Surgical History Abdominal Surgery: Yes (2000,"part of large intestine removed at same time as hysterectomy", ) Cholecystectomy: Yes Coronary Artery Bypass Graft: No Hysterectomy: Yes Joint Replacement: Yes (BILATERAL ELBOW SURGERY) Other Surgery: Yes (gastric bypass) Family History Family Myocardial Infarction: No Social History Alcohol Use: Yes (OCCAS) Tobacco Use: No Substance Use: No Allergies-Medications (Allergen,Severity, Reaction): Coded Allergies: Dilaudid (Unverified Allergy, Severe, Itching, 07/17/16) Morphine (Unverified Allergy, Severe, CLOSTROPHOBIA, 07/17/16) Codeine (Verified Allergy, Mild, 07/17/16) Darvocet-N 100 (Verified Allergy, Mild, 07/17/16) Percocet (Verified Allergy, Mild, 07/17/16) Latex (Verified Adverse Reaction, Severe, "blisters", 07/17/16) Reported Meds & Prescriptions Reported Meds & Active Scripts Active Zithromax Z-Krishan (Azithromycin) 250 Mg Dspk 250 Mg PO DIRECTED 500 MG (2 tabs) day 1, then 1 tab days 2-5. Reported Aspirin 325 Mg Tab 325 Mg PO DAILY Nitrostat SL (Nitroglycerin) 0.4 Mg Subl 0.4 Mg SL DIRECTED PRN 1 tablet under the tongue as needed for chest pain. Repeat every 5 minutes for a total of 3 DOSES or call 911 if NO relief. Metoprolol Tartrate 50 Mg Tab 50 Mg PO BID Review of Systems HENT: No: Headaches Cardiovascular: No: Chest Pain or Discomfort Respiratory: Positive: Cough Gastrointestinal: No: Vomiting Physical Exam Narrative GENERAL: Well-nourished, well-developed patient in no apparent distress. SKIN: Focused skin assessment reveals no rash and nodules. Skin is Warm and dry. HEAD: Atraumatic. Normocephalic. EYES: Pupils equal and round. No scleral icterus. No injection or drainage. ENT: No nasal bleeding or discharge. Mucous membranes pink and moist. NECK: Trachea midline. No JVD. No meningeal signs CARDIOVASCULAR: Regular rate and rhythm. No murmur appreciated. RESPIRATORY: No accessory muscle use. Clear to auscultation. Breath sounds equal bilaterally. GASTROINTESTINAL: Abdomen soft, non-tender, nondistended. Hepatic and splenic margins not palpable. MUSCULOSKELETAL: No obvious deformities. No clubbing. No cyanosis. No edema. NEUROLOGICAL: Awake and alert. No obvious cranial nerve deficits. Motor grossly within normal limits. Normal speech. PSYCHIATRIC: Appropriate mood and affect; insight and judgment normal. Data Data Last Documented VS Vital Signs Date Time Temp Pulse Resp B/P Pulse Ox O2 Delivery O2 Flow Rate FiO2 09/08/16 10:32 98 Room Air 09/08/16 10:29 98.2 113 20 130/91 MDM Medical Decision Making Medical Screen Exam Complete: Yes Emergency Medical Condition: Yes Medical Record Reviewed: Yes Differential Diagnosis Bronchitis, pneumonia, lung cancer Narrative Course I have reviewed the patient's electronic medical record. Patient was here one month ago with chest pain Patient's exam and presentation are fairly benign at this point I don't think extensive investigation is needed emergently Going to start her on Zithromax course She should discuss with her primary physician Dr. Sanderson and she agrees to do so. She will review with him and follow-up to see if he is going to suggest further pulmonary studies based on her coughing up bloody phlegm Diagnosis Primary Impression: Bronchitis Additional Instructions: The patient was advised to follow up with their physician and return if they worsen. Med/Other Pt SpecificInfo: Prescription(s) given Scripts Azithromycin (Zithromax Z-Krishan)250 Mg [id number] Mg PO DIRECTED #1 DSPK Ref 0 500 MG (2 tabs) day 1, then 1 tab days 2-5. Prov:Mik Ng MD 09/08/16 Disposition: 01 DISCHARGE HOME Condition: Stable Mik Ng MD Sep 08, 2016 11:11
[2016-10-13] MEDS ORDERED: ADDE30TA PO ×2 (12:29→15:04)
[2016-10-13] MEDS ORDERED: SERO25TA PO ×2 (12:29→12:33)
[2016-11-05] MEDS ORDERED: ADDE30TA PO ×2 (08:48→14:24)
[2016-11-05] MEDS ORDERED: ZOLO100T PO ×2 (14:19→14:24)
== END 2016-09-08 11:30 | disposition home or self-care (01) ==
LOC: PHED 10:19
DX: J40 Bronchitis, not specified as acute or chronic (principal)
CPT/HCPCS: 99283

== ENCOUNTER 2017-04-28 14:43 | Emergency (ER) | payer MEDICAID ==
[~2017-04-28] VITALS: Ht 172.7 cm; Wt 81.8 kg
[~2017-04-28 14:43] MED LIST changes: +ADDE30TA PO; +ASPI-183 PO; -ASPI325T PO; -QUET1TAB7 PO
[2017-04-28 14:44] VITALS: BP 154/90; PULSE 146; RESP 20; TEMP 98.3; O2SAT 99
[2017-04-28 15:34] LABS: AUTOMATED NEUTROPHIL # 2.4 TH/MM3 (1.8-7.7); BASOPHIL % 0.7 % (0.0-2.0); EOSINOPHIL % 0.5 % (0.0-4.0); HEMATOCRIT 44.3 % (35.0-46.0); HEMO FLAGS DIFF FINAL; LYMPHOCYTE # 1.7 TH/MM3 (1.0-4.8); MEAN CELL VOLUME 85.3 FL (80.0-100.0); MEAN CORPUSCULAR HEMOGLOBIN 28.8 PG (27.0-34.0); MEAN CORPUSCULAR HGB CONC 33.8 % (32.0-36.0); MONO % 8.8 % (0.0-8.0); PLATELET COUNT 187 TH/MM3 (150-450); RED BLOOD COUNT 5.19 MIL/MM3 (4.00-5.30); RED CELL DISTRIBUTION WIDTH 15.2 % (11.6-17.2); WHITE BLOOD COUNT 4.5 TH/MM3 (4.0-11.0)
[2017-04-28 15:50] LABS: BACTERIA, URINE RARE /hpf; BLOOD, URINE SMALL (NEG); COMMENT (UR) CULT NOT INDICATED; CULTURE IF INDICATED CULT NOT INDICATED; GLUCOSE,URINE NEG (NEG); KETONE, URINE NEG (NEG); MUCUS URINE FEW /lpf (OCC); NITRITE,URINE NEG (NEG); SQUAMOUS EPITHELIAL CELL URINE 11 /hpf (0-5); URINE COLOR YELLOW (YELLW/STRAW)
[2017-04-28 15:53] LABS: BICARBONATE 25.2 MEQ/L (21.0-32.0); MAGNESIUM 1.7 MG/DL (1.5-2.5); POTASSIUM 3.6 MEQ/L (3.5-5.1)
--- NOTE | 2017-04-28 16:23 | PD ---
HPI Chief Complaint: General Weakness Time Seen by Provider: 16:17 Travel History International Travel<30 days: No Contact w/Intl Traveler<30days: No Traveled to known affect area: No History of Present Illness HPI 41-year-old female presents the emergency department with reported sudden onset generalized weakness while attempting to pick her son up from school earlier this afternoon. Patient states she felt overall weakness but without significant pain, chills, fever, or other constitutional symptoms. Patient then went home and had her nephew drive her to mixing picker tender her son and then come here. She's developed a low-grade dull headache in the left parietal region which she states is less than a 2/10. She describes visual is in the left visual field as either showing or dots or wavy lines itch, and go since this started. She has mild nausea but no vomiting. She has no history of previous migraine. Patient is a history of total hysterectomy. Patient has multiple allergies including acetaminophen, codeine, hydromorphone, latex, morphine, oxycodone, and propoxyphene. Patient denies drug use. Patient denies recent increased stress PFSH Past Medical History Hx Anticoagulant Therapy: No ADD: Yes ADHD: Yes Anxiety: Yes Heart Rhythm Problems: Yes (SVT) Cardiac Catheterization: No Cardiovascular Problems: Yes High Cholesterol: No Chemotherapy: No Chest Pain: Yes (WITH "ANXIETY ATTACKS") Congestive Heart Failure: No Cerebrovascular Accident: No Diabetes: No Diminished Hearing: No Respiratory: No Immunizations Current: Yes LMP: 2000 Menopausal: Yes : 3 Para: 3 Miscarriage: 0 : 0 Past Surgical History Abdominal Surgery: Yes (2000,"part of large intestine removed at same time as hysterectomy", ) Cholecystectomy: Yes Coronary Artery Bypass Graft: No Hysterectomy: Yes Joint Replacement: Yes (BILATERAL ELBOW SURGERY) Other Surgery: Yes (gastric bypass) Social History Alcohol Use: Yes (OCCAS) Tobacco Use: No Substance Use: No Allergies-Medications (Allergen,Severity, Reaction): Coded Allergies: hydromorphone (Unverified Allergy, Severe, Itching, 04/28/17) morphine (Unverified Allergy, Severe, CLOSTROPHOBIA, 04/28/17) acetaminophen (Unverified Allergy, Mild, 04/28/17) codeine (Unverified Allergy, Mild, 04/28/17) oxycodone (Unverified Allergy, Mild, 04/28/17) propoxyphene (Unverified Allergy, Mild, 04/28/17) latex (Unverified Adverse Reaction, Severe, "blisters", 04/28/17) Reported Meds & Prescriptions Reported Meds & Active Scripts Active Adderall (Amphetamine-Dextroamphetamine) 30 Mg Tab 30 Mg PO BID Avoid late evening doses. Space doses at least 4 to 6 hours if more than once/day dosing. Adderall (Amphetamine-Dextroamphetamine) 30 Mg Tab 30 Mg PO BID Avoid late evening doses. Space doses at least 4 to 6 hours if more than once/day dosing. Adderall (Amphetamine-Dextroamphetamine) 30 Mg Tab 30 Mg PO BID Avoid late evening doses. Space doses at least 4 to 6 hours if more than once/day dosing. Reported Aspirin 325 Mg Tab 325 Mg PO DAILY Nitrostat SL (Nitroglycerin) 0.4 Mg Subl 0.4 Mg SL DIRECTED PRN 1 tablet under the tongue as needed for chest pain. Repeat every 5 minutes for a total of 3 DOSES or call 911 if NO relief. Metoprolol Tartrate 50 Mg Tab 50 Mg PO BID Review of Systems Except as stated in HPI: all other systems reviewed are Neg General / Constitutional: No: Fever Eyes: Positive: Other, No: Visual changes HENT: Positive: Headaches (see history of present illness Ray left-sided), No: Vertigo, Lightheadedness, Sore Throat, Rhinitis, Rhinorrhea, Congestion, Nosebleed, Neck Stiffness, Neck Pain, Dental Difficulties, Earache Cardiovascular: No: Chest Pain or Discomfort Respiratory: No: Shortness of Breath Gastrointestinal: Positive: Nausea, No: Vomiting, Diarrhea, Abdominal Pain Genitourinary: No: Dysuria Musculoskeletal: No: Pain Skin: No Rash Neurologic: No: Weakness Psychiatric: No: Depression Endocrine: No: Polydipsia Hematologic/Lymphatic: No: Easy Bruising Physical Exam Narrative GENERAL: Patient appears somewhat anxious SKIN: Warm and dry. Normal color. Normal turgor. HEAD: Atraumatic. Normocephalic. EYES: Pupils equal and round. No scleral icterus. No injection or drainage. Ocular motions are full and normal bilaterally. No nystagmus. Ophthalmoscopic exam is unremarkable. ENT: No nasal bleeding or discharge. Mucous membranes pink and moist. NECK: Trachea midline. Supple and nontender. CARDIOVASCULAR: Regular rate and rhythm. No murmurs gallops or rubs. RESPIRATORY: No accessory muscle use. Clear to auscultation. Breath sounds equal bilaterally. GASTROINTESTINAL: Abdomen soft, non-tender, nondistended. Hepatic and splenic margins not palpable. MUSCULOSKELETAL: Extremities without clubbing, cyanosis, or edema. No obvious deformities. NEUROLOGICAL: Awake and alert. No obvious cranial nerve deficits. Motor grossly within normal limits. Five out of 5 muscle strength in the arms and legs. Normal speech. PSYCHIATRIC: Appropriate mood and affect; insight and judgment normal. Data Data Last Documented VS Vital Signs Date Time Temp Pulse Resp B/P (MAP) Pulse Ox O2 Delivery O2 Flow Rate FiO2 04/28/17 16:46 126 19 142/96 (111) 116 19 144/97 (113) 112 19 142/89 (106) 04/28/17 16:46 100 Room Air 04/28/17 16:25 98.6 Orders Orders Basic Metabolic Panel (Bmp) (04/28/17 14:49) Complete Blood Count With Diff (04/28/17 14:49) Magnesium (Mg) (04/28/17 14:49) Urinalysis - C+S If Indicated (04/28/17 14:49) Ed Urine Pregnancytest Poc (04/28/17 14:49) Ecg Monitoring (04/28/17 16:28) Iv Access Insert/Monitor (04/28/17 16:28) Oximetry (04/28/17 16:28) Sodium Chloride 0.9% Flush (Ns Flush) (04/28/17 16:30) Ketorolac Inj (Toradol Inj) (04/28/17 16:30) Prochlorperazine Inj (Compazine Inj) (04/28/17 16:30) Sodium Chlor 0.9% 1000 Ml Inj (Ns 1000 M (04/28/17 16:28) Orthostatic Vital Signs (04/28/17 16:28) Labs Laboratory Tests Test 04/28/17 15:21 White Blood Count 4.5 TH/MM3 Red Blood Count 5.19 MIL/MM3 Hemoglobin 15.0 GM/DL Hematocrit 44.3 % Mean Corpuscular Volume 85.3 FL Mean Corpuscular Hemoglobin 28.8 PG Mean Corpuscular Hemoglobin Concent 33.8 % Red Cell Distribution Width 15.2 % Platelet Count 187 TH/MM3 Mean Platelet Volume 8.7 FL Neutrophils (%) (Auto) 52.0 % Lymphocytes (%) (Auto) 38.0 % Monocytes (%) (Auto) 8.8 % Eosinophils (%) (Auto) 0.5 % Basophils (%) (Auto) 0.7 % Neutrophils # (Auto) 2.4 TH/MM3 Lymphocytes # (Auto) 1.7 TH/MM3 Monocytes # (Auto) 0.4 TH/MM3 Eosinophils # (Auto) 0.0 TH/MM3 Basophils # (Auto) 0.0 TH/MM3 CBC Comment DIFF FINAL Differential Comment Urine Color YELLOW Urine Turbidity HAZY Urine pH 6.0 Urine Specific [place] 1.027 Urine Protein TRACE mg/dL Urine Glucose (UA) NEG mg/dL Urine Ketones NEG mg/dL Urine Occult Blood SMALL Urine Nitrite NEG Urine Bilirubin NEG Urine Urobilinogen LESS THAN 2.0 MG/DL Urine Leukocyte Esterase TRACE Urine RBC 1 /hpf Urine WBC 1 /hpf Urine Squamous Epithelial Cells 11 /hpf Urine Bacteria RARE /hpf Urine Mucus FEW /lpf Microscopic Urinalysis Comment CULT NOT INDICATED Blood Urea Nitrogen 8 MG/DL Creatinine 0.89 MG/DL Random Glucose 86 MG/DL Calcium Level 8.9 MG/DL Magnesium Level 1.7 MG/DL Sodium Level 138 MEQ/L Potassium Level 3.6 MEQ/L Chloride Level 103 MEQ/L Carbon Dioxide Level 25.2 MEQ/L Anion Gap 10 MEQ/L Estimat Glomerular Filtration Rate 71 ML/MIN MDM Medical Decision Making Medical Screen Exam Complete: Yes Emergency Medical Condition: Yes Differential Diagnosis Anxiety. Migraine. Weakness. Syncope. Narrative Course Patient appears mildly anxious but otherwise no acute distress. Labs were reviewed that were drawn in triage which are all normal. I do not feel head CT scan is warranted based on the patient's history and physical. IV access is obtained and the patient is given 1000 mg normal saline bolus, 5 mg promethazine IV, 30 mg Toradol IV. Orthostatic vital signs are taken. Orthostatic vital signs are normal. Patient states she feels improved after the above meds. Patient will follow with her primary care physician next several days. Patient can return if symptoms recur or worsen as needed. Diagnosis Primary Impression: Anxiety Additional Impression: Migraine headache with aura Qualified Codes: G43.109 - Migraine with aura, not intractable, without status migrainosus Referrals: Primary Care Physician call for appointment Patient Instructions: Acute Headache (ED), Anxiety (ED), General Instructions Additional Instructions: Orthostatic vital signs are normal. Patient states she feels improved after the above meds. Patient will follow with her primary care physician next several days. Patient can return if symptoms recur or worsen as needed. Med/Other Pt SpecificInfo: No Meds Exist/No RX given Disposition: 01 DISCHARGE HOME Condition: Stable Shreyas Valadez Apr 28, 2017 16:23
[2017-04-28 16:25] VITALS: BP 134/85; PULSE 111; RESP 18; TEMP 98.6; O2SAT 98
[2017-04-28] MEDS ORDERED: SODIUM CHLOR 0.9% 1000 ML INJ 1,000 ML IV ONE (16:28)
[2017-04-28] MEDS ORDERED: PROCHLORPERAZINE INJ 10 MG/2 ML VIAL IVP ONE (16:30)
[2017-04-28] MEDS ORDERED: KETOROLAC TROMETHAMINE 30 MG/ML (IVP) VIAL IVP ONE (16:30)
[2017-04-28] MEDS ORDERED: SODIUM CHLORIDE 0.9% FLUSH 10 ML FLUSH IVF PRN (16:30)
[2017-04-28 16:46] VITALS: BP_SYST 142; BP_SYST 144; BP_DIAS 89; BP_DIAS 96; BP_DIAS 97; PULSE 115; RESP 18; RESP 19; O2SAT 100
== END 2017-04-28 18:00 | disposition home or self-care (01) ==
LOC: NEPD 14:43
DX: F41.9 Anxiety disorder, unspecified (principal); G43.109 Migraine with aura, not intractable, without status migrainosus; R53.1 Weakness; R11.0 Nausea; F90.9 Attention-deficit hyperactivity disorder, unspecified type; I47.1 Supraventricular tachycardia; Z79.899 Other long term (current) drug therapy; Z88.5 Allergy status to narcotic agent; Z88.8 Allergy status to other drugs, medicaments and biological substances
CPT/HCPCS: 80048; 81001; 83735; 85025; 96374; 96375; 99285; J0780; J1885; J7030

== ENCOUNTER 2017-05-24 23:12 | Emergency (ER) | payer MEDICAID ==
[~2017-05-24] VITALS: Ht 175.3 cm; Wt 90.6 kg
[2017-05-24 23:17] VITALS: BP 152/94; PULSE 136; RESP 20; TEMP 97.6; O2SAT 97
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
--- NOTE | 2017-05-25 01:09 | RADRPT ---
EXAM DATE/TIME: 05/25/2017 00:39 [facility] COMPARISON: No previous studies available for comparison. INDICATIONS : Trauma to the right side of head RADIATION DOSE: 62.49 CTDIvol (mGy) MEDICAL HISTORY : Cardiovascular disease. Cerebrovascular disease. SURGICAL HISTORY : Hysterectomy. CABGCholecystectomy. ENCOUNTER: Initial ACUITY: 1 day PAIN SCALE: 0/10 LOCATION: Right cranial TECHNIQUE: Multiple contiguous axial images were obtained of the head. Using automated exposure control and adj ustment of the mA and/or kV according to patient size, radiation dose was kept as low as reasonably a chievable to obtain optimal diagnostic quality images. DICOM format image data is available electro nically for review and comparison. FINDINGS: CEREBRUM: The ventricles are normal for age. No evidence of midline shift, mass lesion, hemorrhage or acute in farction. No extra-axial fluid collections are seen. Calcification of the falx. POSTERIOR FOSSA: The cerebellum and brainstem are intact. The 4th ventricle is midline. The cerebellopontine angle i s unremarkable. EXTRACRANIAL: The visualized portion of the orbits is intact. SKULL: The calvaria is intact. No evidence of skull fracture. CONCLUSION: No acute disease. Carlos Abel Jr., MD on May 25, 2017 at 1:07 Board Certified Radiologist. This report was verified electronically.
[2017-05-25 01:29] VITALS: BP 138/78; PULSE 85; RESP 18; O2SAT 98
== END 2017-05-25 01:33 | disposition home or self-care (01) ==
LOC: PHED 23:12
DX: S00.03XA Contusion of scalp, initial encounter (principal); S10.91XA Abrasion of unspecified part of neck, initial encounter; F90.9 Attention-deficit hyperactivity disorder, unspecified type; I47.1 Supraventricular tachycardia; Y04.8XXA Assault by other bodily force, initial encounter
CPT/HCPCS: 70450; 99284

== ENCOUNTER 2017-06-12 10:08 | Emergency (ER) | payer MEDICAID ==
[~2017-06-12] VITALS: Ht 172.7 cm; Wt 86.2 kg
[2017-06-12 10:26] VITALS: BP 140/71; PULSE 117; RESP 18; TEMP 99; O2SAT 97
--- NOTE | 2017-06-12 11:12 | PD ---
HPI Chief Complaint: Cold / Flu Symptoms Time Seen by Provider: 11:00 Travel History International Travel<30 days: No Contact w/Intl Traveler<30days: No Traveled to known affect area: No History of Present Illness HPI 41-year-old female presents for evaluation. She reports that 1 week ago her was diagnosed with influenza and started on Tamiflu. For the Past 5 days the patient has been having cough, congestion, chills, myalgias. The cough is productive with yellow sputum production. She has been using over-the- counter TheraFlu and she was hoping that the symptoms would resolve on their own. Symptoms persisted which prompted evaluation. Denies shortness of breath , abdominal pain, nausea or vomiting. Denies IV drug use. She has no other complaints at this time. PFSH Past Medical History Hx Anticoagulant Therapy: No ADD: Yes ADHD: Yes Autoimmune Disease: Yes (RA) Anxiety: Yes Heart Rhythm Problems: Yes (SVT) Cardiac Catheterization: No Cardiovascular Problems: Yes High Cholesterol: No Chemotherapy: No Chest Pain: Yes (WITH "ANXIETY ATTACKS") Congestive Heart Failure: No Cerebrovascular Accident: No Diabetes: No Diminished Hearing: No Respiratory: No Immunizations Current: Yes ?: Not Menopausal: Yes : 3 Para: 3 Miscarriage: 0 : 0 Past Surgical History Abdominal Surgery: Yes (GASTRIC BYPASS, COLECTOMY) Cholecystectomy: Yes Coronary Artery Bypass Graft: No Hysterectomy: Yes Joint Replacement: Yes (BILATERAL ELBOW SURGERY) Other Surgery: Yes (MULTIPLE COSMETIC) Social History Alcohol Use: Yes (Bottle wine a day ) Tobacco Use: No Substance Use: No Allergies-Medications (Allergen,Severity, Reaction): Coded Allergies: hydromorphone (Unverified Allergy, Severe, Itching, 06/12/17) morphine (Unverified Allergy, Severe, CLOSTROPHOBIA, 06/12/17) acetaminophen (Unverified Allergy, Mild, CHEST PAIN, 06/12/17) codeine (Unverified Allergy, Mild, CHEST PAIN, 06/12/17) oxycodone (Unverified Allergy, Mild, 05/24/17) propoxyphene (Unverified Allergy, Mild, CHEST PAIN, 06/12/17) latex (Unverified Adverse Reaction, Severe, "blisters", 06/12/17) Reported Meds & Prescriptions Reported Meds & Active Scripts Active Tessalon Perles (Benzonatate) 100 Mg Cap 200 Mg PO TID PRN Adderall (Amphetamine-Dextroamphetamine) 30 Mg Tab 30 Mg PO BID Avoid late evening doses. Space doses at least 4 to 6 hours if more than once/day dosing. Reported Metoprolol Tartrate 50 Mg Tab 50 Mg PO BID Review of Systems Except as stated in HPI: all other systems reviewed are Neg Physical Exam Narrative GENERAL: Well-nourished female in no acute distress SKIN: Warm and dry. HEAD: Atraumatic. Normocephalic. EYES: Pupils equal and round. No scleral icterus. No injection or drainage. ENT: No nasal bleeding or discharge. Mucous membranes pink and moist. NECK: Trachea midline. No JVD. CARDIOVASCULAR: Regular rate and rhythm. No murmur appreciated. RESPIRATORY: No accessory muscle use. Clear to auscultation. Breath sounds equal bilaterally. GASTROINTESTINAL: Abdomen soft, non-tender, nondistended. Hepatic and splenic margins not palpable. MUSCULOSKELETAL: No obvious deformities. No clubbing. No cyanosis. No edema. NEUROLOGICAL: Awake and alert. No obvious cranial nerve deficits. Motor grossly within normal limits. Normal speech. PSYCHIATRIC: Appropriate mood and affect; insight and judgment normal. Data Data Last Documented VS Vital Signs Date Time Temp Pulse Resp B/P (MAP) Pulse Ox O2 Delivery O2 Flow Rate FiO2 06/12/17 10:26 99.0 117 18 140/71 (94) 97 Orders Orders Influenzae A/B Antigen (06/12/17 11:02) Ibuprofen (Motrin) (06/12/17 11:15) Chest, Single Ap (06/12/17 ) Ed Discharge Order (06/12/17 11:58) [facility] Medical Decision Making Medical Screen Exam Complete: Yes Emergency Medical Condition: Yes Medical Record Reviewed: Yes Differential Diagnosis Influenza, bronchitis, pneumonia, sinusitis, otitis media Narrative Course 41-year-old female whose was diagnosed with influenza one week ago presents with 5 days of cough, congestion, chills and myalgias. She appears well. She has tachycardia secondary to her fever. Influenza antigen was performed and it is negative however her history is consistent with influenza. She is outside of treatment window for Tamiflu. Chest x-ray was ordered to rule out pneumonia and it is negative. The patient is being discharged with Tessalon. Diagnosis Primary Impression: Upper respiratory infection Additional Instructions: Stay well-hydrated and well-nourished, get plenty of rest. Tylenol and Motrin for fever per dosing instructions on bottle. Avoid tobacco products. Tessalon for cough. Follow up with primary care physician and return for any emergent medical conditions. Med/Other Pt SpecificInfo: Prescription(s) given Scripts Benzonatate (Tessalon Perles) 100 Mg Cap 200 MG PO TID Y for COUGH, #30 CAP 0 Refills Prov: Kai Ugalde MD 06/12/17 Disposition: 01 DISCHARGE HOME Condition: Stable Brian King Jun 12, 2017 11:12
[2017-06-12] MEDS ORDERED: IBUPROFEN 800 MG TAB PO ONE (11:15)
--- NOTE | 2017-06-12 11:51 | RADRPT ---
EXAM DATE/TIME: 06/12/2017 11:35 [facility] COMPARISON: CHEST SINGLE AP, August 04, 2016, 10:14. INDICATIONS : Cough, short of breath, chest tightness. MEDICAL HISTORY : None. SURGICAL HISTORY : None. ENCOUNTER: Initial ACUITY: 4 - 6 days PAIN SCORE: 0/10 LOCATION: Bilateral chest FINDINGS: Portable AP view of the chest demonstrates a normal-sized cardiac silhouette. No effusion, consolidat ion, or pneumothorax is visualized. The bones and soft tissues demonstrate no acute abnormality. CONCLUSION: No acute cardiopulmonary abnormality is identified. Zach Wolfe MD on June 12, 2017 at 11:49 Board Certified Radiologist. This report was verified electronically.
[2017-06-12] MEDS ORDERED: BENZ100 PO (11:58)
== END 2017-06-12 12:12 | disposition home or self-care (01) ==
LOC: PHED 10:08 → PHEFT 12:12
DX: J06.9 Acute upper respiratory infection, unspecified (principal); M79.1 Myalgia; R68.83 Chills (without fever)
CPT/HCPCS: 71045; 87804; 99283

== ENCOUNTER 2017-06-22 18:14 | Emergency (ER) | payer MEDICAID ==
[~2017-06-22] VITALS: Ht 172.7 cm; Wt 87.0 kg
[~2017-06-22 18:14] MED LIST changes: -ASPI-183 PO; +BENZ100 PO; -NITR0.4S SL
[2017-06-22 18:27] VITALS: BP 139/80; PULSE 94; RESP 16; TEMP 98.3; O2SAT 96
--- NOTE | 2017-06-22 19:29 | PD ---
HPI Chief Complaint: Cold / Flu Symptoms Time Seen by Provider: 19:19 Travel History International Travel<30 days: No Contact w/Intl Traveler<30days: No Traveled to known affect area: No History of Present Illness HPI 41-year-old female presents for evaluation of sore throat and myalgias. Symptoms started today. It hurts to swallow. She has had myalgias but has not checked her temperature at home. The past few weeks the patient has had upper respiratory symptoms which have been improving and almost resolved until the sore throat started today. She still has a slight residual cough. Her was diagnosed with influenza in mid May. She was seen here in [facility] that time she had a negative influenza antigen test. Her son is here with similar symptoms today. No other complaints at this time. PFSH Past Medical History Hx Anticoagulant Therapy: No ADD: Yes ADHD: Yes Autoimmune Disease: Yes (RA) Anxiety: Yes Heart Rhythm Problems: Yes (SVT) Cardiac Catheterization: No Cardiovascular Problems: Yes High Cholesterol: No Chemotherapy: No Chest Pain: Yes (WITH "ANXIETY ATTACKS") Congestive Heart Failure: No Cerebrovascular Accident: No Diabetes: No Diminished Hearing: No Respiratory: No Immunizations Current: Yes Menopausal: Yes : 3 Para: 3 Miscarriage: 0 : 0 Past Surgical History Abdominal Surgery: Yes (GASTRIC BYPASS, COLECTOMY) Cholecystectomy: Yes Coronary Artery Bypass Graft: No Hysterectomy: Yes Joint Replacement: Yes (BILATERAL ELBOW SURGERY) Other Surgery: Yes (MULTIPLE COSMETIC) Social History Alcohol Use: Yes (Bottle wine a day ) Tobacco Use: No Substance Use: No Allergies-Medications (Allergen,Severity, Reaction): Coded Allergies: hydromorphone (Verified Allergy, Severe, Itching, 06/22/17) morphine (Verified Allergy, Severe, CLOSTROPHOBIA, 06/22/17) acetaminophen (Verified Allergy, Mild, CHEST PAIN, 06/22/17) codeine (Verified Allergy, Mild, CHEST PAIN, 06/22/17) oxycodone (Verified Allergy, Mild, 06/22/17) propoxyphene (Verified Allergy, Mild, CHEST PAIN, 06/22/17) latex (Verified Adverse Reaction, Severe, "blisters", 06/22/17) Reported Meds & Prescriptions Reported Meds & Active Scripts Active Adderall (Amphetamine-Dextroamphetamine) 30 Mg Tab 30 Mg PO BID Avoid late evening doses. Space doses at least 4 to 6 hours if more than once/day dosing. Reported Metoprolol Tartrate 50 Mg Tab 50 Mg PO BID Review of Systems Except as stated in HPI: all other systems reviewed are Neg Physical Exam Narrative GENERAL: Well-developed well-nourished male in no acute distress SKIN: Warm and dry. HEAD: Atraumatic. Normocephalic. EYES: Pupils equal and round. No scleral icterus. No injection or drainage. ENT: No nasal bleeding or discharge. Mucous membranes pink and moist. No oral pharyngeal erythema or exudate NECK: Trachea midline. No JVD. No lymphadenopathy CARDIOVASCULAR: Regular rate and rhythm. No murmur appreciated. RESPIRATORY: No accessory muscle use. Clear to auscultation. Breath sounds equal bilaterally. No crackles no wheezing or rhonchi Data Data Last Documented VS Vital Signs Date Time Temp Pulse Resp B/P (MAP) Pulse Ox O2 Delivery O2 Flow Rate FiO2 06/22/17 18:27 98.3 94 16 139/80 (99) 96 Orders Orders Group A Rapid Strep Screen (06/22/17 19:26) Strep Culture (Group A) (06/22/17 19:30) Ed Discharge Order (06/22/17 20:25) MDM Medical Decision Making Medical Screen Exam Complete: Yes Emergency Medical Condition: Yes Medical Record Reviewed: Yes Differential Diagnosis Pharyngitis, tonsillitis, peritonsillar abscess Narrative Course 41-year-old female with 1 day of sore throat and myalgias. She appears well. Rapid strep screen was performed and it is negative. The patient is stable for discharge. Diagnosis Primary Impression: Pharyngitis Additional Instructions: Take Tylenol or Motrin for pain. Stay well hydrated well-nourished. Return for any emergent medical conditions. Med/Other Pt SpecificInfo: No Change to Meds Disposition: 01 DISCHARGE HOME Condition: Stable Brian King Jun 22, 2017 19:29
== END 2017-06-22 20:35 | disposition home or self-care (01) ==
LOC: PHEFT 18:14
DX: J02.9 Acute pharyngitis, unspecified (principal); F90.9 Attention-deficit hyperactivity disorder, unspecified type; I47.1 Supraventricular tachycardia; F41.9 Anxiety disorder, unspecified; Z98.84 Bariatric surgery status
CPT/HCPCS: 87081; 87880; 99282

== ENCOUNTER 2017-08-20 20:33 | Emergency (ER) | payer MEDICAID ==
[~2017-08-20] VITALS: Ht 172.7 cm; Wt 89.0 kg
[~2017-08-20 20:33] MED LIST changes: -BENZ100 PO
[2017-08-20] MEDS ORDERED: IOHEXOL 350 MG/ML 10 ML VIAL (for RAD DIAG) IVCONTRAST ONE (20:34)
[2017-08-20 20:42] VITALS: BP 143/79; PULSE 95; RESP 16; TEMP 98.8; O2SAT 97
[2017-08-20] MEDS ORDERED: SODIUM CHLOR 0.9% 1000 ML INJ 1,000 ML IV SCH (22:10)
[2017-08-20] MEDS ORDERED: FAMOTIDINE 20 MG/2 ML VIAL IV PUSH ONE (22:15)
[2017-08-20] MEDS ORDERED: SODIUM CHLORIDE 0.9% FLUSH 10 ML FLUSH IV FLUSH PRN (22:15)
[2017-08-20] MEDS ORDERED: ONDANSETRON HCL 4 MG/2 ML VIAL IVP ONE (22:15)
--- NOTE | 2017-08-20 22:15 | PD ---
HPI Chief Complaint: GI Complaint Time Seen by Provider: 22:02 Travel History International Travel<30 days: No Contact w/Intl Traveler<30days: No Traveled to known affect area: No History of Present Illness HPI 41-year-old female complains of right flank pain and right-sided abdominal pain. Patient states that she started having right flank pain 5 days ago. Patient states that the pain started moving to the right upper quadrant and now the right lower quadrant of the abdomen today. Patient started having nausea vomiting today also. Patient denies any fever chills. Patient denies any dysuria frequency. Patient denies any vaginal discharge or bleeding. Patient status post hysterectomy and cholecystectomy in the past. Patient status post gastric bypass surgery and tummy tuck in the past. Patient states that she has residual right-sided abdominal numbness after the surgery. Patient however having pain on the right side abdomen for the past 5 days. Patient denies any back pain. PFSH Past Medical History Hx Anticoagulant Therapy: No ADD: Yes ADHD: Yes Autoimmune Disease: Yes (RA) Anxiety: Yes Heart Rhythm Problems: Yes (SVT) Cardiac Catheterization: No Cardiovascular Problems: Yes High Cholesterol: No Chemotherapy: No Chest Pain: Yes (WITH "ANXIETY ATTACKS") Congestive Heart Failure: No Cerebrovascular Accident: No Diabetes: No Diminished Hearing: No Respiratory: No Immunizations Current: Yes Tetanus Vaccination: < 5 Years Influenza Vaccination: No ?: Not Menopausal: Yes : 3 Para: 3 Miscarriage: 0 : 0 Past Surgical History Abdominal Surgery: Yes (GASTRIC BYPASS, COLECTOMY) Cholecystectomy: Yes Coronary Artery Bypass Graft: No Hysterectomy: Yes Joint Replacement: Yes (BILATERAL ELBOW SURGERY) Other Surgery: Yes (MULTIPLE COSMETIC) Social History Alcohol Use: Yes (2 FOURLOCOS DAILY) Tobacco Use: No Substance Use: No Allergies-Medications (Allergen,Severity, Reaction): Coded Allergies: hydromorphone (Verified Allergy, Severe, Itching, 08/20/17) morphine (Verified Allergy, Severe, CLOSTROPHOBIA, 08/20/17) acetaminophen (Verified Allergy, Mild, CHEST PAIN, 08/20/17) codeine (Verified Allergy, Mild, CHEST PAIN, 08/20/17) oxycodone (Verified Allergy, Mild, 08/20/17) propoxyphene (Verified Allergy, Mild, CHEST PAIN, 08/20/17) latex (Verified Adverse Reaction, Severe, "blisters", 08/20/17) Reported Meds & Prescriptions Reported Meds & Active Scripts Active Adderall (Amphetamine-Dextroamphetamine) 30 Mg Tab 30 Mg PO BID Avoid late evening doses. Space doses at least 4 to 6 hours if more than once/day dosing. Review of Systems General / Constitutional: No: Fever Eyes: No: Visual changes HENT: No: Headaches Cardiovascular: No: Chest Pain or Discomfort Respiratory: No: Shortness of Breath Gastrointestinal: Positive: Nausea, Vomiting, Abdominal Pain Genitourinary: No: Dysuria Musculoskeletal: No: Pain Skin: No Rash Neurologic: No: Weakness Psychiatric: No: Depression Endocrine: No: Polydipsia Hematologic/Lymphatic: No: Easy Bruising Physical Exam Narrative GENERAL: Well-nourished, well-developed patient. SKIN: Focused skin assessment warm/dry. HEAD: Normocephalic. EYES: No scleral icterus. No injection or drainage. NECK: Supple, trachea midline. No JVD or lymphadenopathy. CARDIOVASCULAR: Regular rate and rhythm without murmurs, gallops, or rubs. RESPIRATORY: Breath sounds equal bilaterally. No accessory muscle use. GASTROINTESTINAL: Abdomen soft, nondistended. Patient has moderate tenderness on palpation right mid to lower abdomen area. No rebound tenderness. No mass. MUSCULOSKELETAL: No cyanosis, or edema. BACK: Nontender without obvious deformity. No CVA tenderness. Neurologic exam normal. Data Data Last Documented VS Vital Signs Date Time Temp Pulse Resp B/P (MAP) Pulse Ox O2 Delivery O2 Flow Rate FiO2 08/20/17 22:22 100 Room Air 08/20/17 20:42 98.8 95 16 Orders Orders Complete Blood Count With Diff (08/20/17 22:10) Comprehensive Metabolic Panel (08/20/17 22:10) Lipase (08/20/17 22:10) Prothrombin Time / Inr (Pt) (08/20/17 22:10) Act Partial Throm Time (Ptt) (08/20/17 22:10) Urinalysis - C+S If Indicated (08/20/17 22:10) Ct Abd/Pel W Iv Contrast(Rout) (08/20/17 22:10) Iv Access Insert/Monitor (08/20/17 22:10) Ecg Monitoring (08/20/17 22:10) Oximetry (08/20/17 22:10) Ondansetron Inj (Zofran Inj) (08/20/17 22:15) Sodium Chlor 0.9% 1000 Ml Inj (Ns 1000 M (08/20/17 22:10) Sodium Chloride 0.9% Flush (Ns Flush) (08/20/17 22:15) Famotidine Inj (Pepcid Inj) (08/20/17 22:15) Pantoprazole Inj (Protonix Inj) (08/20/17 22:45) Iohexol 350 Inj (Omnipaque 350 Inj) (08/20/17 20:34) Labs Laboratory Tests Test 08/20/17 22:15 White Blood Count 4.2 TH/MM3 Red Blood Count 4.36 MIL/MM3 Hemoglobin 12.9 GM/DL Hematocrit 38.3 % Mean Corpuscular Volume 87.7 FL Mean Corpuscular Hemoglobin 29.6 PG Mean Corpuscular Hemoglobin Concent 33.7 % Red Cell Distribution Width 14.4 % Platelet Count 141 TH/MM3 Mean Platelet Volume 8.6 FL Neutrophils (%) (Auto) 54.5 % Lymphocytes (%) (Auto) 33.9 % Monocytes (%) (Auto) 9.0 % Eosinophils (%) (Auto) 1.7 % Basophils (%) (Auto) 0.9 % Neutrophils # (Auto) 2.3 TH/MM3 Lymphocytes # (Auto) 1.4 TH/MM3 Monocytes # (Auto) 0.4 TH/MM3 Eosinophils # (Auto) 0.1 TH/MM3 Basophils # (Auto) 0.0 TH/MM3 CBC Comment DIFF FINAL Differential Comment Prothrombin Time 9.6 SEC Prothromb Time International Ratio 0.9 RATIO Activated Partial Thromboplast Time 24.3 SEC Urine Color YELLOW Urine Turbidity CLEAR Urine pH 6.0 Urine Specific [place] 1.015 Urine Protein NEG mg/dL Urine Glucose (UA) NEG mg/dL Urine Ketones NEG mg/dL Urine Occult Blood NEG Urine Nitrite NEG Urine Bilirubin NEG Urine Urobilinogen 0.2 MG/DL Urine Leukocyte Esterase NEG Urine WBC 0-2 /hpf Urine Squamous Epithelial Cells 0-5 /hpf Microscopic Urinalysis Comment CULT NOT INDICATED Blood Urea Nitrogen 11 MG/DL Creatinine 0.90 MG/DL Random Glucose 118 MG/DL Total Protein 7.1 GM/DL Albumin 3.1 GM/DL Calcium Level 8.0 MG/DL Alkaline Phosphatase 145 U/L Aspartate Amino Transf (AST/SGOT) 59 U/L Alanine Aminotransferase (ALT/SGPT) 49 U/L Total Bilirubin 0.2 MG/DL Sodium Level 141 MEQ/L Potassium Level 3.8 MEQ/L Chloride Level 109 MEQ/L Carbon Dioxide Level 25.9 MEQ/L Anion Gap 6 MEQ/L Estimat Glomerular Filtration Rate 70 ML/MIN Lipase 364 U/L MDM Medical Decision Making Medical Screen Exam Complete: Yes Emergency Medical Condition: Yes Interpretation(s) 2300 p.m. CBC within normal limits. Platelet 141. GFR 70. AST 59. Alkaline phosphatase 145. UA is negative. 23:[address] scan abdomen pelvis shows no acute process. Differential Diagnosis Differential diagnosis including nephrolithiasis, pyelonephritis, colitis, appendicitis. Narrative Course 41-year-old female with right flank pain and 5 days ago and started having right mid to the right lower quadrant abdominal pain with nausea vomiting today. Diagnosis Primary Impression: Abdominal pain Qualified Codes: R10.9 - Unspecified abdominal pain Patient Instructions: General Instructions Additional Instructions: Bentyl as needed for pain. Follow-up with personal physician and GI specialist. Return if worse. Med/Other Pt SpecificInfo: Prescription(s) given Scripts Dicyclomine (Bentyl) 10 Mg Cap 10 MG PO TID for Bowel Management, #21 CAP 0 Refills Prov: Sylvester Jarrell MD 08/20/17 Disposition: 01 DISCHARGE HOME Condition: Stable Sylvester Jarrell MD Aug 20, 2017 22:15
[2017-08-20 22:21] LABS: BILIRUBIN, URINE NEG (NEG); BLOOD, URINE NEG (NEG); GLUCOSE,URINE NEG (NEG); KETONE, URINE NEG (NEG); NITRITE,URINE NEG (NEG); URINE COLOR YELLOW (YELLW/STRAW); URINE LEUKOCYTE ESTERASE NEG (NEG)
[2017-08-20 22:22] VITALS: O2SAT 100
[2017-08-20 22:22] LABS: AUTOMATED NEUTROPHIL # 2.3 TH/MM3 (1.8-7.7); BASOPHIL % 0.9 % (0.0-2.0); EOSINOPHIL # 0.1 TH/MM3 (0-0.4); EOSINOPHIL % 1.7 % (0.0-4.0); HEMATOCRIT 38.3 % (35.0-46.0); HEMOGLOBIN 12.9 GM/DL (11.6-15.3); LYMPH % 33.9 % (9.0-44.0); LYMPHOCYTE # 1.4 TH/MM3 (1.0-4.8); MEAN CELL VOLUME 87.7 FL (80.0-100.0); MEAN CORPUSCULAR HEMOGLOBIN 29.6 PG (27.0-34.0); MEAN CORPUSCULAR HGB CONC 33.7 % (32.0-36.0); MEAN PLATELET VOLUME 8.6 FL (7.0-11.0); MONOCYTE # 0.4 TH/MM3 (0-0.9); NEUT % 54.5 % (16.0-70.0); PLATELET COUNT 141 TH/MM3 (150-450); RED BLOOD COUNT 4.36 MIL/MM3 (4.00-5.30); RED CELL DISTRIBUTION WIDTH 14.4 % (11.6-17.2); WHITE BLOOD COUNT 4.2 TH/MM3 (4.0-11.0)
[2017-08-20 22:28] LABS: CHLORIDE 109 MEQ/L (98-107); SODIUM (NA) 141 MEQ/L (136-145)
[2017-08-20 22:30] LABS: SQUAMOUS EPITHELIAL CELL URINE 0-5 /hpf (0-5); WBC, URINE 0-2 /hpf (0-5)
[2017-08-20 22:32] LABS: ALBUMIN 3.1 GM/DL (3.4-5.0); BICARBONATE 25.9 MEQ/L (21.0-32.0); BLOOD UREA NITROGEN 11 MG/DL (7-18); GLUCOSE,RANDOM 118 MG/DL (74-106)
[2017-08-20 22:33] LABS: INTERNATIONAL NORMALIZED RATIO 0.9 RATIO; PROTHROMBIN TIME - PATIENT 9.6 SEC (9.8-11.6)
[2017-08-20 22:34] LABS: ALT (GPT) 49 U/L (10-53); AST (GOT) 59 U/L (15-37)
[2017-08-20 22:35] LABS: GLOMERULAR FILTRATION RATE 70 ML/MIN (>89)
[2017-08-20 22:36] LABS: TOTAL BILIRUBIN ADULT 0.2 MG/DL (0.2-1.0); TOTAL PROTEIN 7.1 GM/DL (6.4-8.2)
[2017-08-20 22:37] LABS: ALKALINE PHOSPHATASE 145 U/L (45-117)
[2017-08-20] MEDS ORDERED: PANTOPRAZOLE SODIUM 40 MG VIAL IV PUSH ONE (22:45)
--- NOTE | 2017-08-20 23:47 | RADRPT ---
EXAM DATE/TIME: 08/20/2017 23:26 [facility] COMPARISON: CT ABDOMEN & PELVIS W CONTRAST, October 27, 2015, 22:42. INDICATIONS : Right upper qaudrant pain. IV CONTRAST: 95 cc Omnipaque 350 (iohexol) IV ORAL CONTRAST: No oral contrast ingested. RADIATION DOSE: 16.19 CTDIvol (mGy) MEDICAL HISTORY : Cardiovascular disease. SURGICAL HISTORY : Cholecystectomy. Gastric bypass. Hysterectomy. ENCOUNTER: Initial ACUITY: 1 week PAIN SCALE: 6/10 LOCATION: Right upper quadrant TECHNIQUE: Volumetric scanning of the abdomen and pelvis was performed. Using automated exposure control and ad justment of the mA and/or kV according to patient size, radiation dose was kept as low as reasonably achievable to obtain optimal diagnostic quality images. DICOM format image data is available electro nically for review and comparison. FINDINGS: Gastric bypass, cholecystectomy and appendectomy changes are noted. No obstruction or acute inflammat ory changes are seen of the gastrointestinal tract. There is 17 mm unchanged subcapsular hypodensity of the left hepatic lobe. There is a new 24 mm hypod ensity adjacent to the falciform ligament and gallbladder fossa region that is most likely focal fatt y infiltration. No biliary distention. Spleen, pancreas, adrenal glands and kidneys are normal. No free fluid. No lymphadenopathy. Scarring and mild fatty herniation again seen at the level of the umbilicus unchanged. Visualized lung bases are clear. No acute bony abnormality demonstrated. Patient is status post hyste rectomy. CONCLUSION: 1. No obstruction or acute inflammatory changes are demonstrated. 2. 2.4 cm hepatic hypodensity adjacent to the gallbladder fossa and falciform ligament that is most l ikely focal fatty infiltration. This is new since 2015 but I doubt contributory. If attempted more de finitive characterization is desired clinically, nonemergent abdomen MRI with and without contrast is recommended. 3. The 17 mm hypodensity of the left hepatic lobe is stable, benign. 4. Cholecystectomy, appendectomy, hysterectomy and gastric bypass changes are again noted without jay dence of associated acute complication. Zach Elaine MD on August 20, 2017 at 23:40 Board Certified Radiologist. This report was verified electronically.
[2017-08-20] MEDS ORDERED: DICY10 PO (23:57)
[2017-08-21 00:21] VITALS: BP 112/69
== END 2017-08-21 00:24 | disposition home or self-care (01) ==
LOC: PHED 20:33
DX: R10.9 Unspecified abdominal pain (principal); R11.2 Nausea with vomiting, unspecified; Z98.84 Bariatric surgery status
CPT/HCPCS: 74177; 80053; 81001; 83690; 85025; 85610; 85730; 96361; 96374; 96375; 99284; C9113; J2405; J7030; Q9967

== ENCOUNTER 2017-09-01 21:28 | Emergency (ER) | payer MEDICAID ==
[~2017-09-01] VITALS: Ht 172.7 cm; Wt 87.4 kg
[~2017-09-01 21:28] MED LIST changes: +DICY10 PO; -METO50TA PO
[2017-09-01 21:33] VITALS: BP 152/108; PULSE 119; RESP 16; TEMP 98.3; O2SAT 99
[2017-09-01 23:45] VITALS: BP 145/97; PULSE 105; RESP 18; O2SAT 99
--- NOTE | 2017-09-01 23:49 | PD ---
HPI Chief Complaint: Pain: Acute or Chronic Time Seen by Provider: 23:46 Travel History International Travel<30 days: No Contact w/Intl Traveler<30days: No Traveled to known affect area: No History of Present Illness HPI The patient is a 41-year-old female that noticed some swelling behind her left knee today. She does have a history of DVT in the past. She states she has had a hysterectomy and cannot be . She denies any chest pain or shortness of breath. PFSH Past Medical History Hx Anticoagulant Therapy: No ADD: Yes ADHD: Yes Autoimmune Disease: Yes (RA) Anxiety: Yes Heart Rhythm Problems: Yes (SVT) Cardiac Catheterization: No Cardiovascular Problems: Yes High Cholesterol: No Chemotherapy: No Chest Pain: Yes (WITH "ANXIETY ATTACKS") Congestive Heart Failure: No Cerebrovascular Accident: No Diabetes: No Diminished Hearing: No Respiratory: No Immunizations Current: Yes ?: Not Menopausal: Yes : 3 Para: 3 Miscarriage: 0 : 0 Past Surgical History Abdominal Surgery: Yes (GASTRIC BYPASS, COLECTOMY) Cholecystectomy: Yes Coronary Artery Bypass Graft: No Hysterectomy: Yes Joint Replacement: Yes (BILATERAL ELBOW SURGERY) Other Surgery: Yes (MULTIPLE COSMETIC) Social History Alcohol Use: Yes (2 FOURLOCOS DAILY) Tobacco Use: No Substance Use: No Allergies-Medications (Allergen,Severity, Reaction): Coded Allergies: hydromorphone (Verified Allergy, Severe, Itching, 09/01/17) morphine (Verified Allergy, Severe, CLOSTROPHOBIA, 09/01/17) acetaminophen (Verified Allergy, Mild, CHEST PAIN, 09/01/17) codeine (Verified Allergy, Mild, CHEST PAIN, 09/01/17) oxycodone (Verified Allergy, Mild, 09/01/17) propoxyphene (Verified Allergy, Mild, CHEST PAIN, 09/01/17) latex (Verified Adverse Reaction, Severe, "blisters", 09/01/17) Reported Meds & Prescriptions Reported Meds & Active Scripts Active Adderall (Amphetamine-Dextroamphetamine) 30 Mg Tab 30 Mg PO BID Avoid late evening doses. Space doses at least 4 to 6 hours if more than once/day dosing. Review of Systems Except as stated in HPI: all other systems reviewed are Neg Physical Exam Narrative GENERAL: The patient is alert, oriented 3, anxious appearing in no apparent distress. Her vital signs show blood pressure 152/108 with heart rate of 119 but otherwise are normal. SKIN: Focused skin assessment warm/dry. No needle tracks no wrist slash hernandez are present. HEAD: Atraumatic. Normocephalic. EYES: Pupils equal and round. No scleral icterus. No injection or drainage. ENT: No nasal bleeding or discharge. Mucous membranes pink and moist. NECK: Trachea midline. No JVD. CARDIOVASCULAR: Regular rate and rhythm. No murmur appreciated. RESPIRATORY: No accessory muscle use. Clear to auscultation. Breath sounds equal bilaterally. GASTROINTESTINAL: Abdomen soft, non-tender, nondistended. Hepatic and splenic margins not palpable. MUSCULOSKELETAL: No obvious deformities. No clubbing. No cyanosis. No edema. I cannot see any difference between the left and right legs as far as swelling. She has no calf pain tenderness present or cord in the palpated in the calf. There is questionable fullness behind the left knee. No erythema is seen over either leg. Homans sign is negative. NEUROLOGICAL: Awake and alert. No obvious cranial nerve deficits. Motor grossly within normal limits. Normal speech. PSYCHIATRIC: Appropriate mood and affect; insight and judgment normal. Data Data Last Documented VS Vital Signs Date Time Temp Pulse Resp B/P (MAP) Pulse Ox O2 Delivery O2 Flow Rate FiO2 09/01/17 23:45 18 09/01/17 23:45 105 145/97 (113) 99 Room Air 09/01/17 21:33 98.3 Orders Orders Us Leg Venous Doppler (09/01/17 23:49) MDM Medical Decision Making Medical Screen Exam Complete: Yes Emergency Medical Condition: Yes Medical Record Reviewed: Yes Interpretation(s) The ultrasound shows no DVT but does show a popliteal cyst measuring 3.5 x 2 x 1.1 cm. Differential Diagnosis DVT, muscle strain, popliteal cyst Narrative Course The patient has a popliteal cyst. This is exactly where the patient feels the fullness, behind the knee and not down on the leg. She needs to rest the knee. The six-inch Michel may help. Diagnosis Primary Impression: Popliteal cyst, unruptured Additional Instructions: As we discussed, take the Motrin regularly, 1 tablet 3 times daily. Follow-up with your primary care physician. If you can rest and elevate the knee this will help. Med/Other Pt SpecificInfo: Prescription(s) given Scripts Ibuprofen (Ibuprofen) 600 Mg Tab 600 MG PO TID, #33 TAB 0 Refills Prov: Genaro Moore MD 09/02/17 Disposition: 01 DISCHARGE HOME Condition: Stable Genaro Moore MD Sep 01, 2017 23:49
--- NOTE | 2017-09-02 01:27 | RADRPT ---
EXAM DATE/TIME: 09/02/2017 01:07 [facility] COMPARISON: No previous studies available for comparison. INDICATIONS : Left leg swelling and pain. MEDICAL HISTORY : . Deep venous thrombosis. Irregular heartbeat. Rheumatoid arthritis. Anxiety. ADHD. SURGICAL HISTORY : Cholecystectomy. Hysterectomy. Gastric bypass. Colectomy. Bilateral elbow surgeries. Multiple rosalie tic surgeries. ENCOUNTER: Initial ACUITY: 2 day PAIN SCORE: 4/10 LOCATION: Left leg. TECHNIQUE: Venous ultrasound of the leg was performed from the inguinal ligament to the proximal calf. Real-tae e, color Doppler and spectral tracing, compression and augmentation techniques were used. FINDINGS: There is normal compressibility of the deep venous system from the inguinal region to the proximal ca lf. No echogenic clot is seen in the lumen of the common femoral, femoral, popliteal, and posterior tibial veins. There is a normal response of the venous system to proximal and distal augmentation an d respiration. Carlisle's cyst noted in the popliteal fossa measuring 35 x 20 x 11 mm. CONCLUSION: 1. No DVT in the left leg. 2. Popliteal fossa cyst measuring 3.5 x 2.0 x 1.1 cm. Mahesh Pope MD on September 02, 2017 at 1:25 Board Certified Radiologist. This report was verified electronically.
[2017-09-02] MEDS ORDERED: IBUP-232 PO (01:38)
[2017-09-02 02:37] VITALS: BP 130/94
== END 2017-09-02 02:50 | disposition home or self-care (01) ==
LOC: PHED 21:28
DX: M71.22 Synovial cyst of popliteal space [Baker], left knee (principal); M06.9 Rheumatoid arthritis, unspecified; I47.1 Supraventricular tachycardia; Z86.718 Personal history of other venous thrombosis and embolism; Z98.84 Bariatric surgery status; Z88.5 Allergy status to narcotic agent; Z90.710 Acquired absence of both cervix and uterus
CPT/HCPCS: 93971; 99284